=== PATIENT | male | born 1935 | race American Indian/Alaskan Native ===

== ENCOUNTER 2016-06-10 10:49 | Emergency (ER) | payer MEDICARE, OTHER ==
--- NOTE | 2016-06-10 11:01 | EDM.PDOC ---
[id number]: painful urination with urinary frequency/urgency Time Seen by Provider: 06/10/16 11:00 Source of Information: Reports: Patient, Family, Old Records, RN, RN Notes Reviewed History Limitations: Reports: No Limitations - History of Present Illness INITIAL COMMENTS - FREE TEXT/NARRATIVE: Pt c/o several days of burning with urination and urgency. Pt admits to chills. Denies fever. Reports suprapubic fullness and nausea. Onset: Gradual Duration: Constant, Getting Worse Location: Reports: Abdomen, Pelvis Quality: Reports: Ache, Burning, Pressure Severity: Severe Improves with: Reports: None Worsens with: Reports: None Context: Denies: Activity, Exercise, Lifting, Sick Contact, Trauma Associated Symptoms: Reports: No Other Symptoms Pelvic Pain Score (Numeric/FACES): 2 - Related Data Allergies Allergy/AdvReac Type Severity Reaction Status Date / Time No Known Allergies Allergy Verified 02/17/16 17:56 Home Meds: Home Meds Aspirin [Esvin Chewable] 81 mg PO DAILY 06/16/13 [History] Clopidogrel [Plavix] 75 mg PO DAILY 06/16/13 [History] Lisinopril [Zestril] 2.5 mg PO DAILY 06/16/13 [History] Insulin Aspart [NovoLOG] 15 units SQ QID 02/17/16 [History] Insulin Detemir [Levemir] 32 units SQ BEDTIME 02/17/16 [History] Insulin Detemir [Levemir] 46 units SQ DAILY 02/17/16 [History] metFORMIN HCl [Metformin HCl] 500 mg PO BID 02/17/16 [History] Levofloxacin 0 mg PO BID 06/10/16 [History] Past Medical History Cardiovascular History: Reports: Bypass, Hypertension, [place], Stents Other Cardiovascular History: 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 Social & Family History - Family History Family Medical History: Noncontributory - Tobacco Use Smoking Status *Q: Former Smoker Years of Tobacco use: 10 Packs/Tins Daily: 0.5 Used Tobacco, but Quit: Yes Month Tobacco Last Used: 1998 Second Hand Smoke Exposure: No - Caffeine Use Caffeine Use: Reports: Coffee Caffeine Use Comment: 1 cup daily - Alcohol Use Days Per Week of Alcohol Use: 0 (None) - Recreational Drug Use Recreational Drug Use: No Drug Use in Last 12 Months: No Recreational Drug Last Use: Never - Living Situation & Occupation Living situation: Reports: , with Family Occupation: Retired ED ROS GENERAL - Review of Systems Review Of Systems: ROS reveals no pertinent complaints other than HPI. ED EXAM, RENAL/ - Physical Exam Exam: See Below Exam Limited By: No Limitations General Appearance: Alert, WD/WN, No Apparent Distress Head: Atraumatic, Normocephalic Neck: Normal Inspection Respiratory/Chest: No Respiratory Distress, Lungs Clear, Normal Breath Sounds, No Accessory Muscle Use, Chest Non-Tender Cardiovascular: Regular Rate, Rhythm GI/Abdominal: Normal Bowel Sounds, Soft, No Abnormal Bruit, Pelvis Stable, Tender (suprapubic with bladder distention to level of umbilicus). No: Guarding , Rigid, Rebound (Male) Exam: Deferred Rectal (Males) Exam: Deferred Back Exam: Normal Inspection, Full Range of Motion. No: CVA Tenderness (L), CVA Tenderness (R) Neurological: Alert, Oriented, No Motor/Sensory Deficits Psychiatric: Normal Affect, Normal Mood Skin Exam: Warm, Dry, Intact, Normal Color, No Rash Course - Vital Signs Last Recorded V/S: Last Vital Signs Temp 36.2 C 06/10/16 11:13 Pulse 61 06/10/16 11:13 Resp 18 06/10/16 11:13 BP 120/69 06/10/16 11:13 Pulse Ox 95 06/10/16 11:13 - Orders/Labs/Meds Labs: Laboratory Tests 06/10/16 06/10/16 06/10/16 Range/Units 11:35 11:35 11:35 WBC 7.8 (5.0-10.0) 10^3/uL RBC 4.74 (4.6-6.2) 10^6/uL Hgb 12.7 L (14.0-18.0) g/dL Hct 39.0 L (40.0-54.0) % MCV 82.3 (80-100) fL MCH 26.8 L (27.0-34.0) pg MCHC 32.6 L (33.0-35.0) g/dL Plt Count 237 (150-450) 10^3/uL Neut % (Auto) 67.3 (42.2-75.2) % Lymph % (Auto) 17.9 L (20.5-50.1) % Ford % (Auto) 9.9 H (2-8) % Eos % (Auto) 4.6 H (1.0-3.0) % Baso % (Auto) 0.3 (0.0-1.0) % Sodium 134 L (135-145) mmol/L Potassium 4.3 (3.6-5.0) mmol/L Chloride 102 (101-111) mmol/L Carbon Dioxide 24.0 (21.0-31.0) mmol/L Anion Gap 12.3 BUN 34 H (7-18) mg/dL Creatinine 1.3 (0.6-1.3) mg/dL Est Cr Clr Drug Dosing 49.07 mL/min Estimated GFR (MDRD) 53 BUN/Creatinine Ratio 26.15 Glucose 66 L (74-105) mg/dL Lactic Acid 1.2 (0.5-2.2) mmol/L Calcium 8.9 (8.4-10.2) mg/dl Total Bilirubin 0.4 (0.2-1.0) mg/dL AST 23 (10-42) IU/L ALT 14 (10-60) IU/L Alkaline Phosphatase 78 (42-121) IU/L Total Protein 7.5 (6.7-8.2) g/dl Albumin 3.6 (3.2-5.5) g/dl Globulin 3.9 Albumin/Globulin Ratio 0.92 Urine Color (YELLOW) Urine Appearance (CLEAR) Urine pH (5.0-9.0) Ur Specific [place] (1.005-1.030) Urine Protein (NEGATIVE) Urine Glucose (UA) (NEGATIVE) Urine Ketones (NEGATIVE) Urine Occult Blood (NEGATIVE) Urine Nitrite (NEGATIVE) Urine Bilirubin (NEGATIVE) Urine Urobilinogen (0.2-1.0) mg/dL Ur Leukocyte Esterase (NEGATIVE) Urine RBC /HPF Urine WBC (0-5/HPF) /HPF Ur Epithelial Cells /HPF Urine Bacteria (0-FEW/HPF) /HPF 05/05/17 Range/Units 12:27 WBC (5.0-10.0) 10^3/uL RBC (4.6-6.2) 10^6/uL Hgb (14.0-18.0) g/dL Hct (40.0-54.0) % MCV (80-100) fL MCH (27.0-34.0) pg MCHC (33.0-35.0) g/dL Plt Count (150-450) 10^3/uL Neut % (Auto) (42.2-75.2) % Lymph % (Auto) (20.5-50.1) % Ford % (Auto) (2-8) % Eos % (Auto) (1.0-3.0) % Baso % (Auto) (0.0-1.0) % Sodium (135-145) mmol/L Potassium (3.6-5.0) mmol/L Chloride (101-111) mmol/L Carbon Dioxide (21.0-31.0) mmol/L Anion Gap BUN (7-18) mg/dL Creatinine (0.6-1.3) mg/dL Est Cr Clr Drug Dosing mL/min Estimated GFR (MDRD) BUN/Creatinine Ratio Glucose (74-105) mg/dL Lactic Acid (0.5-2.2) mmol/L Calcium (8.4-10.2) mg/dl Total Bilirubin (0.2-1.0) mg/dL AST (10-42) IU/L ALT (10-60) IU/L Alkaline Phosphatase (42-121) IU/L Total Protein (6.7-8.2) g/dl Albumin (3.2-5.5) g/dl Globulin Albumin/Globulin Ratio Urine Color Yellow (YELLOW) Urine Appearance Clear (CLEAR) Urine pH 7.0 (5.0-9.0) Ur Specific [place] 1.015 (1.005-1.030) Urine Protein Negative (NEGATIVE) Urine Glucose (UA) Negative (NEGATIVE) Urine Ketones Negative (NEGATIVE) Urine Occult Blood Negative (NEGATIVE) Urine Nitrite Negative (NEGATIVE) Urine Bilirubin Negative (NEGATIVE) Urine Urobilinogen 0.2 (0.2-1.0) mg/dL Ur Leukocyte Esterase Small H (NEGATIVE) Urine RBC 0-5 /HPF Urine WBC 40-50 H (0-5/HPF) /HPF Ur Epithelial Cells Few /HPF Urine Bacteria Few (0-FEW/HPF) /HPF Meds: Medications Discontinued Medications Generic Name Dose Route Start Last Admin Trade Name Jarad PRN Reason Stop Dose Admin Sodium Chloride 1,000 mls @ 999 mls/hr 06/10/16 11:48 06/10/16 11:51 Normal Saline IV 06/10/16 12:48 999 mls/hr .BOLUS ONE Administration Ceftriaxone Sodium 1 gm/ 50 mls @ 100 mls/hr 06/10/16 13:19 06/10/16 13:25 Sodium Chloride IV 06/10/16 13:48 100 mls/hr ONETIME ONE Administration Phenazopyridine HCl 190 mg 06/10/16 13:21 06/10/16 13:35 Urinary Pain Relief PO 06/10/16 13:22 190 mg ONETIME ONE Administration Sodium Chloride 10 ml 06/10/16 11:29 06/10/16 11:47 Saline Flush FLUSH 10 ml ASDIRECTED PRN Administration Keep Vein Open Tamsulosin HCl 0.4 mg 06/10/16 13:21 06/10/16 13:35 Flomax PO 06/10/16 13:22 0.4 mg ONETIME ONE Administration Departure - Departure Time of Disposition: 14:08 Disposition: Home, Self-Care 01 Condition: fair Clinical Impression: Retention of urine, UTI, Urinary tract infectious disease - Discharge Information Instructions: Lemus Catheter Care, Adult, Urinary Tract Infection, Adult, Easy- to-Read, Acute Urinary Retention, Male, [id number] Referrals: Brien Carrion MD [Primary Care Provider] - Forms: ED Department Discharge Additional Instructions: Rx: Pyridium 200mg *Turn urine orange* Rx: Flomax 0.4mg Rx: Bactrim DS Follow up with your urologist as scheduled. Return to ER if worse at any time. ED HPI RENAL/ - General Chief Complaint: Genitourinary Problem Stated Complaint: UTI Time Seen by Provider: 06/10/16 11:00 Source of Information: Reports: Patient, Old Records, RN, RN Notes Reviewed History Limitations: Reports: No Limitations - Related Data Allergies/ADRs: Allergies Allergy/AdvReac Type Severity Reaction Status Date / Time No Known Allergies Allergy Verified 02/17/16 17:56 Home Meds: Home Meds Aspirin [Esvin Chewable] 81 mg PO DAILY 06/16/13 [History] Clopidogrel [Plavix] 75 mg PO DAILY 06/16/13 [History] Lisinopril [Zestril] 2.5 mg PO DAILY 06/16/13 [History] Insulin Aspart [NovoLOG] 15 units SQ QID 02/17/16 [History] Insulin Detemir [Levemir] 32 units SQ BEDTIME 02/17/16 [History] Insulin Detemir [Levemir] 46 units SQ DAILY 02/17/16 [History] metFORMIN HCl [Metformin HCl] 500 mg PO BID 02/17/16 [History] Levofloxacin 0 mg PO BID 06/10/16 [History] Departure - Departure Time of Disposition: 14:08 Disposition: Home, Self-Care 01 Condition: fair Clinical Impression: Retention of urine, UTI, Urinary tract infectious disease Instructions: Lemus Catheter Care, Adult, Urinary Tract Infection, Adult, Easy- to-Read, Acute Urinary Retention, Male, [id number] Referrals: Brien Carrion MD [Primary Care Provider] - Forms: ED Department Discharge Additional Instructions: Rx: Pyridium 200mg *Turn urine orange* Rx: Flomax 0.4mg Rx: Bactrim DS Follow up with your urologist as scheduled. Return to ER if worse at any time.
[2016-06-10 11:16] VITALS: BP 120/69
[2016-06-10] MEDS ORDERED: Sodium Chloride 0.9% 10 ML Syringe FLUSH PRN (11:29)
[2016-06-10] MEDS ORDERED: Sodium Chloride 0.9% 1,000 ML IV ONE (11:48)
[2016-06-10] MEDS ORDERED: cefTRIAXone 1 GM in Sodium Chloride 0.9% 50 ML IV ONE (13:19)
[2016-06-10] MEDS ORDERED: Phenazopyridine 95 MG Tab PO ONE (13:21)
[2016-06-10] MEDS ORDERED: Tamsulosin 0.4 MG Cap.ER PO ONE (13:21)
== END 2016-06-10 14:44 | disposition home or self-care (01) ==
LOC: DL.ED 10:49
DX: N39.0 Urinary tract infection, site not specified (principal); E11.9 Type 2 diabetes mellitus without complications; I25.2 Old myocardial infarction; I10 Essential (primary) hypertension; Z95.4 Presence of other heart-valve replacement; Z79.4 Long term (current) use of insulin; Z79.82 Long term (current) use of aspirin; Z79.84 Long term (current) use of oral hypoglycemic drugs; Z87.891 Personal history of nicotine dependence; Z95.1 Presence of aortocoronary bypass graft
CPT/HCPCS: 36415; 51701; 80053; 81001; 83605; 85025; 87040; 87086; 96361; 96365; 99283; A9270; J0696; J7030; J7050; 99284

== ENCOUNTER 2017-02-10 19:25 | Emergency (ER) | payer MEDICARE, OTHER ==
[2017-02-10 19:38] VITALS: BP 105/47
--- NOTE | 2017-02-10 20:53 | EDM.PDOC ---
ED HPI GENERAL MEDICAL PROBLEM - General Chief Complaint: Flank Pain Stated Complaint: BACK PAINS, [id number] Time Seen by Provider: 02/10/17 19:35 Source of Information: Reports: Patient, Family History Limitations: Reports: No Limitations - History of Present Illness INITIAL COMMENTS - FREE TEXT/NARRATIVE: Presents with initial complaint of right flank pain for past 2 weeks, daughter notes concern of UTI which he had in past. Patient reports unable to see primary provider today as he was out of town. States am blood sugars are low, family report this has been on going over past year. Last insulin change approximately one year ago. Patient also reports hands have been hurting. Patient stated that he was told by [facility] that if he couldn't wait to be seen until next week he should just go to ED. Right Lower Back Pain Score (Numeric/FACES): 6 - Related Data Allergies Allergy/AdvReac Type Severity Reaction Status Date / Time No Known Allergies Allergy Verified 02/10/17 19:37 Home Meds: Home Meds Aspirin [Esvin Chewable] 81 mg PO DAILY 06/16/13 [History] Clopidogrel [Plavix] 75 mg PO DAILY 06/16/13 [History] Lisinopril [Zestril] 2.5 mg PO DAILY 06/16/13 [History] Insulin Aspart [NovoLOG] 15 units SQ QID 02/17/16 [History] Insulin Detemir [Levemir] 32 units SQ BEDTIME 02/17/16 [History] Insulin Detemir [Levemir] 46 units SQ DAILY 02/17/16 [History] metFORMIN HCl [Metformin HCl] 500 mg PO BID 02/17/16 [History] Levofloxacin 0 mg PO BID 06/10/16 [History] Past Medical History HEENT History: Reports: Impaired Vision Cardiovascular History: Reports: Bypass, Hypertension, [place], Stents Other Cardiovascular History: 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 Gastrointestinal History: Reports: Chronic Constipation Genitourinary History: Reports: Prostate Disorder, UTI, Recurrent Musculoskeletal History: Reports: Amputation, Arthritis Neurological History: Reports: None Psychiatric History: Reports: None Endocrine/Metabolic History: Reports: Diabetes, Type II Hematologic History: Reports: None Immunologic History: Reports: None Oncologic (Cancer) History: Reports: Prostate Dermatologic History: Reports: None - Infectious Disease History Infectious Disease History: Reports: Measles - Past Surgical History Musculoskeletal Surgical History: Reports: Amputation Other Musculoskeletal Surgeries/Procedures:: spinal surgery? Social & Family History - Family History Family Medical History: Noncontributory - Tobacco Use Smoking Status *Q: Never Smoker Years of Tobacco use: 10 Packs/Tins Daily: 0.5 Used Tobacco, but Quit: Yes Month Tobacco Last Used: 1998 Second Hand Smoke Exposure: No - Caffeine Use Caffeine Use: Reports: Coffee Caffeine Use Comment: 1 cup daily - Alcohol Use Days Per Week of Alcohol Use: 0 (None) - Recreational Drug Use Recreational Drug Use: No Drug Use in Last 12 Months: No Recreational Drug Last Use: Never - Living Situation & Occupation Living situation: Reports: , with Family Occupation: Retired ED ROS GENERAL - Review of Systems Review Of Systems: See Below Constitutional: Reports: No Symptoms HEENT: Reports: No Symptoms Respiratory: Reports: No Symptoms Cardiovascular: Reports: No Symptoms Endocrine: Reports: Low Glucose (am with lows 40-60 and highs of 200, notes nightly snack) GI/Abdominal: Reports: No Symptoms : Reports: Flank Pain (right), Frequency. Denies: Incontinence, Pain, Urgency Musculoskeletal: Reports: Other (hands) Skin: Reports: No Symptoms Neurological: Reports: No Symptoms ED EXAM,LOWER BACK PAIN/INJURY - Physical Exam Exam: See Below Exam Limited By: No Limitations General Appearance: Alert, No Apparent Distress Eye Exam: Bilateral Eye: EOMI Ears: Normal External Exam, Hearing Grossly Normal Nose: Normal Inspection Throat/Mouth: Normal Inspection, Normal Lips, Normal Voice Head: Atraumatic Neck: Normal Inspection Respiratory/Chest: No Respiratory Distress, Lungs Clear, Normal Breath Sounds Cardiovascular: Normal Peripheral Pulses, Regular Rate, Rhythm, No Edema GI/Abdominal: Normal Bowel Sounds, Soft Back Exam: CVA Tenderness (R). No: Vertebral Tenderness Extremities: Normal Range of Motion, Other (BKA left) Neurological: Alert, Normal Mood/Affect, Oriented x 3 Psychiatric: Normal Affect, Normal Mood Skin Exam: Warm, Dry, Intact, Normal Color, No Rash. No: Erythema, Increased Warmth Course - Vital Signs Last Recorded V/S: Last Vital Signs Temp 97 F 02/10/17 19:31 Pulse 80 02/10/17 19:31 Resp 18 02/10/17 19:31 BP 105/47 L 02/10/17 19:31 Pulse Ox 95 01/05/18 19:31 - Orders/Labs/Meds Labs: Laboratory Tests 02/10/17 Range/Units 19:45 Urine Color Yellow (YELLOW) Urine Appearance Clear (CLEAR) Urine pH 5.0 (5.0-9.0) Ur Specific [place] 1.025 (1.005-1.030) Urine Protein Negative (NEGATIVE) Urine Glucose (UA) Negative (NEGATIVE) Urine Ketones Trace H (NEGATIVE) Urine Occult Blood Negative (NEGATIVE) Urine Nitrite Negative (NEGATIVE) Urine Bilirubin Negative (NEGATIVE) Urine Urobilinogen 0.2 (0.2-1.0) mg/dL Ur Leukocyte Esterase Negative (NEGATIVE) Urine RBC 0-5 /HPF Urine WBC 0-5 (0-5/HPF) /HPF Ur Epithelial Cells Few /HPF Urine Bacteria Few (0-FEW/HPF) /HPF - Re-Assessments/Exams Free Text/Narrative Re-Assessment/Exam: UA results reviewed with patient and family. Patient instructed to follow up with primary provider. June trial decreasing Levimir by 2 units, continue to monitor blood sugar. Departure - Departure Time of Disposition: 21:00 Disposition: Home, Self-Care 01 Condition: Good Clinical Impression: Right flank discomfort, Multiple episodes of hypoglycemia - Discharge Information Instructions: Hypoglycemia Referrals: Brien aCrrion MD [Primary Care Provider] - Forms: ED Department Discharge Additional Instructions: decrease bedtime levimir to 30 units eat bed time snack follow up with with primary care next week urgent follow up if febrile, pain, increased difficulty with urination,l continue to monitor blood sugars and report to primary care provider
== END 2017-02-10 21:03 | disposition home or self-care (01) ==
LOC: DL.ED 19:25
DX: E11.649 Type 2 diabetes mellitus with hypoglycemia without coma (principal); R10.9 Unspecified abdominal pain; I10 Essential (primary) hypertension; Z79.84 Long term (current) use of oral hypoglycemic drugs; Z79.899 Other long term (current) drug therapy; Z87.440 Personal history of urinary (tract) infections
CPT/HCPCS: 81001; 99284

== ENCOUNTER 2017-04-09 12:02 | Emergency (ER) | payer MEDICARE, OTHER ==
[2017-04-09 12:10] VITALS: BP 101/64
[2017-04-09] MEDS ORDERED: Bacitracin Oint 1 GM U/D Packet TOP ONE (12:39)
--- NOTE | 2017-04-09 13:00 | EDM.PDOC ---
Scribed by Keshia Dewitt 04/09/17 1300 for Todd Obando MD ED HPI GENERAL MEDICAL PROBLEM - General Chief Complaint: Lower Extremity Injury/Pain Stated Complaint: [id number] BLISTER ON LEG RIGHT SIDE INFECTION Time Seen by Provider: 04/09/17 12:08 Source of Information: Reports: Patient, RN, RN Notes Reviewed History Limitations: Reports: No Limitations - History of Present Illness INITIAL COMMENTS - FREE TEXT/NARRATIVE: Patient presents to ER from home by POV with complaint of breakdown of skin on his right BKA stump. He first noticed it this past week on . On Monday he called [facility] and asked if he could come and have it looked at but they told him no he could not be seen. Yesterday he noticed a small amount of yellow drainage. Today he noticed increased redness around the area. Onset Date: 04/06/17 Duration: Getting Worse Location: Reports: Lower Extremity, Right Quality: Reports: Ache Severity: Moderate Improves with: Reports: None Worsens with: Reports: None Associated Symptoms: Reports: No Other Symptoms Right Knee Pain Score (Numeric/FACES): 9 - Related Data Allergies Allergy/AdvReac Type Severity Reaction Status Date / Time No Known Allergies Allergy Verified 04/09/17 12:10 Home Meds: Home Meds Aspirin [Esvin Chewable] 81 mg PO DAILY 06/16/13 [History] Clopidogrel [Plavix] 75 mg PO DAILY 06/16/13 [History] Lisinopril [Zestril] 2.5 mg PO DAILY 06/16/13 [History] Insulin Aspart [NovoLOG] 15 units SQ QID 02/17/16 [History] Insulin Detemir [Levemir] 20 units SQ BEDTIME 02/17/16 [History] Insulin Detemir [Levemir] 46 units SQ DAILY 02/17/16 [History] metFORMIN HCl [Metformin HCl] 500 mg PO DAILY 02/17/16 [History] atorvaSTATin [Lipitor] 40 mg PO BEDTIME 04/09/17 [History] Past Medical History HEENT History: Reports: Impaired Vision Cardiovascular History: Reports: Bypass, Hypertension, [place], Stents Other Cardiovascular History: 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 Gastrointestinal History: Reports: Chronic Constipation Genitourinary History: Reports: Prostate Disorder, UTI, Recurrent Musculoskeletal History: Reports: Amputation, Arthritis Neurological History: Reports: None Psychiatric History: Reports: None Endocrine/Metabolic History: Reports: Diabetes, Type II Hematologic History: Reports: None Immunologic History: Reports: None Oncologic (Cancer) History: Reports: Prostate Dermatologic History: Reports: None - Infectious Disease History Infectious Disease History: Reports: Measles - Past Surgical History Musculoskeletal Surgical History: Reports: Amputation Other Musculoskeletal Surgeries/Procedures:: spinal surgery? Social & Family History - Family History Family Medical History: Noncontributory - Tobacco Use Smoking Status *Q: Never Smoker Years of Tobacco use: 10 Packs/Tins Daily: 0.5 Used Tobacco, but Quit: Yes Month Tobacco Last Used: 1998 Second Hand Smoke Exposure: No - Caffeine Use Caffeine Use: Reports: Coffee Caffeine Use Comment: 1 cup daily - Alcohol Use Days Per Week of Alcohol Use: 0 (None) - Recreational Drug Use Recreational Drug Use: No Drug Use in Last 12 Months: No Recreational Drug Last Use: Never - Living Situation & Occupation Living situation: Reports: , with Family Occupation: Retired Review of Systems - Review of Systems Review Of Systems: ROS reveals no pertinent complaints other than HPI. ED EXAM, GENERAL - Physical Exam Exam: See Below Exam Limited By: No Limitations General Appearance: Alert, WD/WN, No Apparent Distress Head: Atraumatic, Normocephalic Respiratory/Chest: No Respiratory Distress Extremities: Other (Rt BKA stump with 2.5cm gissel. area of thin whitish skin consistent with a recently ruptured bulla with a 1cm linear disruption/tear with fully approximated. The 2.5cm area of skin breakdown surrounded by 3.5cm x 6cm of mild but tender erythema.) Neurological: Alert, Oriented, No Motor/Sensory Deficits Course - Vital Signs Last Recorded V/S: Last Vital Signs Temp 36.6 C 04/09/17 12:05 Pulse 88 04/09/17 12:05 Resp 18 04/09/17 12:05 BP 101/64 04/09/17 12:05 Pulse Ox 98 04/09/17 12:05 - Orders/Labs/Meds Meds: Medications Discontinued Medications Generic Name Dose Route Start Last Admin Trade Name Freq PRN Reason Stop Dose Admin Bacitracin 1 dose 04/09/17 12:39 Bacitracin Oint 1 Gm TOP 04/09/17 12:40 ONETIME ONE Departure - Departure Time of Disposition: 12:43 Disposition: Home, Self-Care 01 Condition: Fair Clinical Impression: 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 RX: Cipro 500mg. Follow up in clinic this week for a recheck. Rest the right lower extremity stump and minimize the pressure to the area as much as possible. I have read and agree with the documentation that has been completed regarding this visit. By signing this record, I attest that the documentation was completed in my physical presence and is an accurate record of the encounter.
== END 2017-04-09 13:03 | disposition home or self-care (01) ==
LOC: DL.ED 12:02
DX: L89.899 Pressure ulcer of other site, unspecified stage (principal); I10 Essential (primary) hypertension; E11.9 Type 2 diabetes mellitus without complications; Z87.891 Personal history of nicotine dependence; Z95.1 Presence of aortocoronary bypass graft; Z79.82 Long term (current) use of aspirin; Z79.4 Long term (current) use of insulin; Z79.02 Long term (current) use of antithrombotics/antiplatelets; Z79.899 Other long term (current) drug therapy; Z89.511 Acquired absence of right leg below knee
CPT/HCPCS: 99283

== ENCOUNTER 2018-12-13 07:48 | Observation (INO) | payer MEDICARE, OTHER ==
--- NOTE | 2018-12-13 07:40 | EDM.PDOC ---
"ED HPI GENERAL MEDICAL PROBLEM - General Chief Complaint: Neuro Symptoms/Deficits Stated Complaint: STROKE Time Seen by Provider: 12/13/18 07:49 Source of Information: Reports: Patient, EMS, Old Records, RN, RN Notes Reviewed History Limitations: Reports: No Limitations - History of Present Illness INITIAL COMMENTS - FREE TEXT/NARRATIVE: EMS pre-arrival alert of Stroke Code at 0731HRS. Pt arrives to ER from home by ambulance with report of left arm numbness and weakness present since pt woke up this morning. EMS reports finding the pt awake , A&Ox3 with a blood glucose of 132. Last known well time: 1500HRS yesterday 12/12/18. Arrival to ER: 0748HRS. Blood Glucose on arrival to ER: 72 GCS on arrival to ER: [address] scanner on EMS gurney. Pt states he did not feel well in general yesterday, and specifically he reports that he went to bed at 1500HRS due to a severe headache at the left side of the head. He states he does not think he woke up at all until about 0600HRS this morning, he isn't sure but he does not recall waking up at all during this prolonged sleep period. When he woke this morning he states that he felt as if his left arm was gone, and he had to pull the blankets back to find it. His left hand felt numb and weak. He also reports some numbness and tingling in the right arm as well, but it is now back to normal. He continues to feel as if his left arm is not part of his own body. He denies visual changes , difficulty with speech or swallowing, slurred speech, or loss of bowel or bladder control. Pt has Hx of DM Type 2 insulin dependent, CAD, and has B/L BKAs. Onset: Unknown/Unsure Duration: Constant Location: Reports: Upper Extremity, Left Severity: Moderate Improves with: Reports: None Worsens with: Reports: None Associated Symptoms: Reports: No Other Symptoms Headache Pain Score (Numeric/FACES): 5 - Related Data Allergies Allergy/AdvReac Type Severity Reaction Status Date / Time No Known Allergies Allergy Verified 12/13/18 08:12 Home Meds: Home Meds Aspirin [Esvin Chewable] 81 mg PO DAILY 06/16/13 [History] Clopidogrel [Plavix] 75 mg PO DAILY 06/16/13 [History] Lisinopril [Zestril] 2.5 mg PO DAILY 06/16/13 [History] Insulin Aspart [NovoLOG] 15 units SQ QID 02/17/16 [History] Insulin Detemir [Levemir] 20 units SQ BEDTIME 02/17/16 [History] Insulin Detemir [Levemir] 46 units SQ DAILY 02/17/16 [History] metFORMIN HCl [Metformin HCl] 500 mg PO BID 02/17/16 [History] atorvaSTATin [Lipitor] 40 mg PO BEDTIME 04/09/17 [History] Baclofen 5 mg PO BID 12/13/18 [History] Celecoxib 200 mg PO DAILY PRN 12/13/18 [History] Docusate Sodium [Stool Softener] 100 mg PO BID 12/13/18 [History] Magnesium Oxide 400 mg PO DAILY 12/13/18 [History] Tamsulosin [Tamsulosin 24 Hr] 0.4 mg PO DAILY 12/13/18 [History] Past Medical History HEENT History: Reports: Impaired Vision (wears glasses) Cardiovascular History: Reports: Bypass, High Cholesterol, Hypertension, CA, Stents Other Cardiovascular History: 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 Gastrointestinal History: Reports: Chronic Constipation Genitourinary History: Reports: Prostate Disorder, UTI, Recurrent Musculoskeletal History: Reports: Amputation, Arthritis Neurological History: Reports: None Psychiatric History: Reports: None Endocrine/Metabolic History: Reports: Diabetes, Type II, IDDM Hematologic History: Reports: None Immunologic History: Reports: None Oncologic (Cancer) History: Reports: Prostate Dermatologic History: Reports: None - Infectious Disease History Infectious Disease History: Reports: Measles - Past Surgical History Cardiovascular Surgical History: Reports: Coronary Artery Bypass Musculoskeletal Surgical History: Reports: Amputation Other Musculoskeletal Surgeries/Procedures:: spinal surgery? Social & Family History - Family History Family Medical History: Noncontributory - Tobacco Use Smoking Status *Q: Former Smoker Tobacco Use Within Last Twelve Months: Cigarettes Packs/Tins Daily: 0.5 Used Tobacco, but Quit: Yes - Caffeine Use Caffeine Use: Reports: Coffee, Soda Caffeine Use Comment: 1 cup daily - Alcohol Use Alcohol Use History: No - Recreational Drug Use Recreational Drug Use: No - Living Situation & Occupation Living situation: Reports: , with Family Occupation: Retired ED ROS GENERAL - Review of Systems Review Of Systems: ROS reveals no pertinent complaints other than HPI. ED EXAM, NEURO - Physical Exam Exam: See Below Exam Limited By: No Limitations General Appearance: Alert, WD/WN, No Apparent Distress Eye Exam: Bilateral Eye: EOMI, Normal Inspection, PERRL Ears: Normal External Exam, Hearing Grossly Normal Nose: Normal Inspection, Normal Mucosa, No Blood Throat/Mouth: Normal Inspection, Normal Lips, Normal Oropharynx, Normal Voice, No Airway Compromise Head Exam: Atraumatic, Normocephalic Neck: Normal Inspection, Supple, Non-Tender, Full Range of Motion Respiratory/Chest: No Respiratory Distress, Lungs Clear, Normal Breath Sounds, No Accessory Muscle Use, Chest Non-Tender Cardiovascular: Regular Rate, Rhythm, No JVD, Extra Beats GI/Abdominal: Normal Bowel Sounds, Soft, Non-Tender, No Organomegaly, No Distention, No Abnormal Bruit, No Mass Neurological: Alert, Normal Mood/Affect, CN II-XII Intact, Oriented x 3, Abnormal Motor (Mild left upper extremity weakness), Other (NIH: 0) Back Exam: Normal Inspection Extremities: Normal Range of Motion (B/L upper extremities), Other (B/L BKA's) Psychiatric: Normal Affect, Normal Mood Skin Exam: Warm, Dry, Normal Color EKG INTERPRETATION EKG Date: 12/13/18 Time: 08:14 Rhythm: Other (SR with PVCs) Rate (Beats/Min): 74 [place]: LAD-Left [place] Deviation P-Wave: Present QRS: RBBB (Inferior Q waves) ST-T: Normal QT: Normal Comparison: No Change EKG Interpretation Comments: Repeat EKG at 0905HRS: unchanged, no acute ischemic changes. Course - Vital Signs Last Recorded V/S: Last Vital Signs Temp 97.5 F 12/13/18 08:04 Pulse 74 12/13/18 08:04 Resp 16 12/13/18 08:04 BP 117/55 L 12/13/18 08:04 Pulse Ox 98 12/13/18 08:04 - Orders/Labs/Meds Orders: Active Orders 24 hr Category Date Time Status Blood Glucose Check, Bedside [] ONETIME Care 12/13/18 07:40 Active Blood Glucose Check, Bedside [] ONETIME Care 12/13/18 08:22 Active Blood Glucose Check, Bedside [] ONETIME Care 12/13/18 08:43 Active EKG 12 Lead [EKG Documentation Completion] [] STAT Care 12/13/18 07:49 Active EKG 12 Lead [EKG Documentation Completion] [] STAT Care 12/13/18 08:57 Active Peripheral IV Care [] . DIRECTED Care 12/13/18 07:49 Active DRUG SCREEN URINE BIORAD [URCHEM] Stat Lab 12/13/18 08:57 Ordered UA RFX IVELISSE AND CULT IF INDIC [URIN] Stat Lab 12/13/18 08:57 Ordered Sodium Chloride 0.9% [Saline Flush] Med 12/13/18 07:48 Active 10 ml FLUSH ASDIRECTED PRN Peripheral IV Insertion Adult [OM.PC] Stat Oth 12/13/18 07:49 Ordered Medication Orders Sodium Chloride (Saline Flush) 10 ml FLUSH ASDIRECTED PRN PRN Reason: Keep Vein Open Last Admin: 12/13/18 08:25 Dose: 10 ml Labs: Laboratory Tests 12/13/18 12/13/18 12/13/18 Range/Units 07:51 08:08 08:08 WBC 8.9 (5.0-10.0) 10^3/uL RBC 5.11 (4.6-6.2) 10^6/uL Hgb 13.9 L D (14.0-18.0) g/dL Hct 42.0 (40.0-54.0) % MCV 82.2 (80-100) fL MCH 27.2 (27.0-34.0) pg MCHC 33.1 (33.0-35.0) g/dL Plt Count 217 (150-450) 10^3/uL Neut % (Auto) 56.8 (42.2-75.2) % Lymph % (Auto) 30.8 (20.5-50.1) % [place] % (Auto) 7.5 (2-8) % Eos % (Auto) 4.5 H (1.0-3.0) % Baso % (Auto) 0.4 (0.0-1.0) % PT 9.3 (9.0-12.0) SEC INR 0.9 (0.9-1.2) APTT 24.2 (22.0-34.0) SEC Sodium (135-145) mmol/L Potassium (3.6-5.0) mmol/L Chloride (101-111) mmol/L Carbon Dioxide (21.0-31.0) mmol/L Anion Gap BUN (7-18) mg/dL Creatinine (0.6-1.3) mg/dL Est Cr Clr Drug Dosing mL/min Estimated GFR (MDRD) BUN/Creatinine Ratio Glucose (74-105) mg/dL POC Glucose 72 L (83-110) mg/dl Calcium (8.4-10.2) mg/dl Total Bilirubin (0.2-1.0) mg/dL AST (10-42) IU/L ALT (10-60) IU/L Alkaline Phosphatase (42-121) IU/L Troponin I (0.00-0.02) ng/ml Total Protein (6.7-8.2) g/dl Albumin (3.2-5.5) g/dl Globulin Albumin/Globulin Ratio Ethyl Alcohol mg/dL 12/13/18 12/13/18 12/13/18 Range/Units 08:08 08:19 08:42 WBC (5.0-10.0) 10^3/uL RBC (4.6-6.2) 10^6/uL Hgb (14.0-18.0) g/dL Hct (40.0-54.0) % MCV (80-100) fL MCH (27.0-34.0) pg MCHC (33.0-35.0) g/dL Plt Count (150-450) 10^3/uL Neut % (Auto) (42.2-75.2) % Lymph % (Auto) (20.5-50.1) % [place] % (Auto) (2-8) % Eos % (Auto) (1.0-3.0) % Baso % (Auto) (0.0-1.0) % PT (9.0-12.0) SEC INR (0.9-1.2) APTT (22.0-34.0) SEC Sodium 140 (135-145) mmol/L Potassium 4.5 (3.6-5.0) mmol/L Chloride 109 (101-111) mmol/L Carbon Dioxide 23.0 (21.0-31.0) mmol/L Anion Gap 12.5 BUN 24 H (7-18) mg/dL Creatinine 1.0 (0.6-1.3) mg/dL Est Cr Clr Drug Dosing 60.66 mL/min Estimated GFR (MDRD) > 60 BUN/Creatinine Ratio 24.00 Glucose 70 L (74-105) mg/dL POC Glucose 53 L 181 H (83-110) mg/dl Calcium 8.8 (8.4-10.2) mg/dl Total Bilirubin 0.6 (0.2-1.0) mg/dL AST 18 (10-42) IU/L ALT 13 (10-60) IU/L Alkaline Phosphatase 93 (42-121) IU/L Troponin I < 0.02 (0.00-0.02) ng/ml Total Protein 7.0 (6.7-8.2) g/dl Albumin 3.6 (3.2-5.5) g/dl Globulin 3.4 Albumin/Globulin Ratio 1.06 Ethyl Alcohol < 5 mg/dL Meds: Medications Generic Name Dose Route Start Last Admin Trade Name Freq PRN Reason Stop Dose Admin Sodium Chloride 10 ml 12/13/18 07:48 12/13/18 08:25 Saline Flush FLUSH 10 ml ASDIRECTED PRN Administration Keep Vein Open Discontinued Medications Generic Name Dose Route Start Last Admin Trade Name Freq PRN Reason Stop Dose Admin Dextrose/Water 50 ml 12/13/18 08:20 12/13/18 08:25 Dextrose 50% In Water IVPUSH 12/13/18 08:21 50 ml ONETIME ONE Administration - Radiology Interpretation Free Text/Narrative:: [facility] Final Radiology Report Call: [phone] assistance Online chat: [email or web address] Name: BRITTANI MALONEY Age: 83Years M Date: 12/13/2018 SSN: -- : [id number] Study: CT HEAD WO Requesting Physician: SENIA ELISE Images: [id number] Addl Studies: Provided Clinical History: acute left sided weakness, numbness, slurring of speech Contrast: Without Contrast Medium: Contrast Amount: Contrast Method: Page 1 of 2 PROCEDURE INFORMATION: Exam: CT Head Without Contrast Exam date and time: 12/13/2018 7:46 AM Clinical history: 83 years old, male; Speech disturbance and weakness, extremity and weakness, facial; Left; Slurred speech; Additional info: Acute left sided weakness, numbness, slurring of speech TECHNIQUE: Imaging protocol: Computed tomography of the head without contrast. Radiation optimization: All CT scans at this facility use at least one of these dose optimization techniques: automated exposure control; mA and/or kV adjustment per patient size (includes targeted exams where dose is matched to clinical indication); or iterative reconstruction. Other technique: STROKE PROTOCOL was implemented. COMPARISON: CT HEAD 10/01/2008 11:11 AM FINDINGS: Brain: Multiple scattered periventricular and subcortical white matter hypodensities are redemonstrated. New low-attenuation focus is present in the right posterior parietal lobe white matter without associated gyral edema or sulcal effacement. Small old lacunar infarct left cerebellar hemisphere. No acute intracranial hemorrhage. No evidence of intra or extra- axial masses or mass effect. Ventricles: Normal. No ventriculomegaly. Bones/joints: Unremarkable. No acute fracture. Sinuses: Visualized sinuses are unremarkable. No fluid levels. Mastoid air cells: Visualized mastoid air cells are well aerated. Orbits: Bilateral lens replacements. Soft tissues: 0.6 cm homogeneous low attenuation circumscribed subcutaneous nodule is present in the left frontal scalp similar to prior exam and probably represents a benign epidermal inclusion/sebaceous cyst. Vasculature: The vertebral and cavernous carotid arteries are calcified. BRITTANI MALONEY | Final Radiology Report CONFIDENTIALITY STATEMENT This report is intended only for use by the referring physician, and only in accordance with law. If you received this in error, call [phone]. Page 2 of 2 IMPRESSION: 1. No acute findings. Please note that CT is known to be relatively insensitive to acute ischemia in the first 24-48 hours and MRI may be useful if clinically indicated. [place] Stroke Program Early CT Score (ASPECTS) = 10 2. Moderate burden of chronic ischemic microvascular change including remote left cerebellar lacunar infarct. One region of white matter hypoattenuation is new since 2008 but appears nonacute. Thank you for allowing us to participate in the care of your patient. Dictated and Authenticated by: Antoinette Silver MD 12/13/2018 8:14 AM Central Time ([place] & [place]) - Re-Assessments/Exams Free Text/Narrative Re-Assessment/Exam: 12/13/18 08:21 Blood Glucose at 0820HRS had dropped to 53. Dextrose 50% 1 amp. IVP given. Free Text/Narrative Re-Assessment/Exam: 12/13/18 09:04 US for carotids/ECHO, and CTA Head/Neck are locally available services today for further stroke evaluation, therefore pt will be admitted to Dr. Botello as pt' s initially stroke evaluation is negative, and pt has displayed diabetic hypoglycemia while in the ER. Departure - Departure Time of Disposition: 09:07 (admit to Dr. Botello) Disposition: Admitted As Inpatient 67 Condition: Fair, Undetermined Clinical Impression: Left arm weakness, Hypoglycemia associated with type 2 diabetes mellitus - Discharge Information *PRESCRIPTION DRUG MONITORING PROGRAM REVIEWED*: No *COPY OF PRESCRIPTION DRUG MONITORING REPORT IN PATIENT REJI: No Forms: ED Department Discharge - My Orders Last 24 Hours: My Active Orders 12/13/18 07:40 Blood Glucose Check, Bedside [RC] ONETIME 12/13/18 07:48 Sodium Chloride 0.9% [Saline Flush] 10 ml FLUSH ASDIRECTED PRN 12/13/18 07:49 EKG 12 Lead [EKG Documentation Completion] [RC] STAT Peripheral IV Care [RC] . DIRECTED Peripheral IV Insertion Adult [OM.PC] Stat 12/13/18 08:22 Blood Glucose Check, Bedside [RC] ONETIME 12/13/18 08:43 Blood Glucose Check, Bedside [RC] ONETIME 12/13/18 08:57 EKG 12 Lead [EKG Documentation Completion] [RC] STAT DRUG SCREEN URINE BIORAD [URCHEM] Stat UA RFX IVELISSE AND CULT IF INDIC [URIN] Stat - Assessment/Plan Last 24 Hours: My Active Orders 12/13/18 07:40 Blood Glucose Check, Bedside [RC] ONETIME 12/13/18 07:48 Sodium Chloride 0.9% [Saline Flush] 10 ml FLUSH ASDIRECTED PRN 12/13/18 07:49 EKG 12 Lead [EKG Documentation Completion] [RC] STAT Peripheral IV Care [RC] . DIRECTED Peripheral IV Insertion Adult [OM.PC] Stat 12/13/18 08:22 Blood Glucose Check, Bedside [RC] ONETIME 12/13/18 08:43 Blood Glucose Check, Bedside [RC] ONETIME 12/13/18 08:57 EKG 12 Lead [EKG Documentation Completion] [RC] STAT DRUG SCREEN URINE BIORAD [URCHEM] Stat UA RFX IVELISSE AND CULT IF INDIC [URIN] Stat"
[~2018-12-13 07:48] MED LIST: Sodium Chloride 0.9% 10 ML Syringe FLUSH PRN
[2018-12-13] MEDS ORDERED: 50% Dextrose in Water 50 ML Syringe IVPUSH ONE (08:20)
[2018-12-13 08:36] LABS: ANION GAP 12.5; CHLORIDE,CL 109 mmol/L (101-111); SODIUM,NA 140 mmol/L (135-145)
--- NOTE | 2018-12-13 11:22 | PCM.HP ---
H&P History of Present Illness - General Date of Service: 12/13/18 Admit Problem/Dx: Admission Diagnosis/Problem Admission Diagnosis/Problem Neurological deficit present Source of Information: Patient - History of Present Illness Initial Comments - Free Text/Narative: 83-year-old gentleman with a history of coronary artery disease, diabetes Status post bilateral below-knee amputation. The patient developed left sided headache suddenly around 1 PM on 12/12 No associated neurological changes. The patient went to take a nap, which is his usual activity in the early afternoon. Later family noticed that the he continued to sleep the rest of the day and the night as well. When woke up in the morning he was complaining that he has no feeling in the left arm. Left arm meat carver weakness noted by family. Had no associated slurred speech. Blood pressure at home was in the 80s. Blood sugar was around 110 The patient was brought into the emergency room. Blood pressure improved with fluids to the 100s. Blood sugar was noted to be low in the 70s The patient is reporting on and off headache. 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 He continues to have left arm meat carver weakness. No chest pain, no palpitation, no shortness of breath. No speech deficit. No problems with swallowing. Headache Pain Score (Numeric/FACES): 5 - Related Data Allergies/Adverse Reactions: Allergies Allergy/AdvReac Type Severity Reaction Status Date / Time No Known Allergies Allergy Verified 12/13/18 10:02 Home Medications: Home Meds Aspirin [Esvin Chewable] 81 mg PO DAILY 06/16/13 [History] Clopidogrel [Plavix] 75 mg PO DAILY 06/16/13 [History] Lisinopril [Zestril] 2.5 mg PO DAILY 06/16/13 [History] Insulin Aspart [NovoLOG] 2 - 10 units SQ TIDMEALS 02/17/16 [History] Insulin Detemir [Levemir] 40 units SQ WITHBREAKFAST 02/17/16 [History] metFORMIN HCl [Metformin HCl] 500 mg PO BIDMEALS 02/17/16 [History] atorvaSTATin [Lipitor] 40 mg PO BEDTIME 04/09/17 [History] Baclofen 5 mg PO BID PRN 12/13/18 [History] Celecoxib 200 mg PO DAILY 12/13/18 [History] Docusate Sodium [Stool Softener] 200 mg PO BEDTIME 12/13/18 [History] Magnesium Oxide 400 mg PO DAILY 12/13/18 [History] Tamsulosin [Tamsulosin 24 Hr] 0.4 mg PO DAILY 12/13/18 [History] Past Medical History HEENT History: Reports: Hard of Hearing, Impaired Vision, Other (See Below) Other HEENT History: blind left eye Cardiovascular History: Reports: Bypass, High Cholesterol, Hypertension, LA, Stents Other Cardiovascular History: 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 Respiratory History: Reports: None Gastrointestinal History: Reports: Chronic Constipation Genitourinary History: Reports: Prostate Disorder, UTI, Recurrent Musculoskeletal History: Reports: Amputation, Arthritis, Other (See Below) Other Musculoskeletal History: bilateral below the knee amputation Neurological History: Reports: Concussion Psychiatric History: Reports: None Endocrine/Metabolic History: Reports: Diabetes, Type II, IDDM Hematologic History: Reports: None Immunologic History: Reports: None Oncologic (Cancer) History: Reports: Prostate Dermatologic History: Reports: None - Infectious Disease History Infectious Disease History: Reports: Measles - Past Surgical History HEENT Surgical History: Reports: None Cardiovascular Surgical History: Reports: Coronary Artery Bypass GI Surgical History: Reports: None Male Surgical History: Reports: Prostatectomy, TURP-Transurethral Resection of Prostate, Other (See Below) Other Male Surgeries/Procedures: Partial Prostectomy Endocrine Surgical History: Reports: None Neurological Surgical History: Reports: Discectomy Musculoskeletal Surgical History: Reports: Amputation Other Musculoskeletal Surgeries/Procedures:: spinal surgery for slipped disc Social & Family History - Family History Family Medical History: Noncontributory - Tobacco Use Smoking Status *Q: Former Smoker Packs/Tins Daily: 0.5 Used Tobacco, but Quit: Yes Month/Year Tobacco Last Used: 1998 Second Hand Smoke Exposure: No - Caffeine Use Caffeine Use: Reports: Coffee, Soda Caffeine Use Comment: 1 cup daily - Recreational Drug Use Recreational Drug Use: No - Living Situation & Occupation Living situation: Reports: , with Family Occupation: Retired H&P Review of Systems - Review of Systems: Review Of Systems: See Below General: Denies: Fever, Chills Pulmonary: Denies: Shortness of Breath Cardiovascular: Denies: Chest Pain Gastrointestinal: Denies: Abdominal Pain Genitourinary: Denies: Dysuria Psychiatric: Denies: Confusion Neurological: Reports: Headache, Numbness (Left upper extremity), Tingling ( Left upper extremity). Denies: Dizziness, Seizure, Trouble Speaking, Change in Speech Exam - Exam Exam: See Below - Vital Signs Vital Signs: Last Vital Signs Temp 36.5 C 12/13/18 10:02 Pulse 72 12/13/18 10:02 Resp 18 12/13/18 10:02 BP 111/54 L 12/13/18 10:02 Pulse Ox 95 12/13/18 10:02 Weight: 80.83 kg - Exam General: Alert, Oriented Neck: Supple Lungs: Clear to Auscultation, Normal Respiratory Effort Cardiovascular: Regular Rate, Regular Rhythm GI/Abdominal Exam: Normal Bowel Sounds, Soft, Non-Tender Extremities: Other (Bilateral below knee amputation) Skin: Warm, Dry Neurological: Cranial Nerves Intact, Normal Speech, Sensation Intact (Reports numbness in left upper extremity), Focal Deficit (Mild weakness in left upper extremity meat carver strength) Neuro Extensive - Motor, Sensory, Reflexes: No: Dysarthria, Receptive Aphasia, Expressive Aphasia - Patient Data Lab Results Last 24 hrs: Laboratory Results - last 24 hr 12/13/18 12/13/18 12/13/18 Range/Units 07:51 08:08 08:08 WBC 8.9 (5.0-10.0) 10^3/uL RBC 5.11 (4.6-6.2) 10^6/uL Hgb 13.9 L D (14.0-18.0) g/dL Hct 42.0 (40.0-54.0) % MCV 82.2 (80-100) fL MCH 27.2 (27.0-34.0) pg MCHC 33.1 (33.0-35.0) g/dL Plt Count 217 (150-450) 10^3/uL Neut % (Auto) 56.8 (42.2-75.2) % Lymph % (Auto) 30.8 (20.5-50.1) % [place] % (Auto) 7.5 (2-8) % Eos % (Auto) 4.5 H (1.0-3.0) % Baso % (Auto) 0.4 (0.0-1.0) % PT 9.3 (9.0-12.0) SEC INR 0.9 (0.9-1.2) APTT 24.2 (22.0-34.0) SEC Sodium (135-145) mmol/L Potassium (3.6-5.0) mmol/L Chloride (101-111) mmol/L Carbon Dioxide (21.0-31.0) mmol/L Anion Gap BUN (7-18) mg/dL Creatinine (0.6-1.3) mg/dL Est Cr Clr Drug Dosing mL/min Estimated GFR (MDRD) BUN/Creatinine Ratio Glucose (74-105) mg/dL POC Glucose 72 L (83-110) mg/dl Calcium (8.4-10.2) mg/dl Total Bilirubin (0.2-1.0) mg/dL AST (10-42) IU/L ALT (10-60) IU/L Alkaline Phosphatase (42-121) IU/L Troponin I (0.00-0.02) ng/ml Total Protein (6.7-8.2) g/dl Albumin (3.2-5.5) g/dl Globulin Albumin/Globulin Ratio Urine Color (YELLOW) Urine Appearance (CLEAR) Urine pH (5.0-9.0) Ur Specific [place] (1.005-1.030) Urine Protein (NEGATIVE) Urine Glucose (UA) (NEGATIVE) Urine Ketones (NEGATIVE) Urine Occult Blood (NEGATIVE) Urine Nitrite (NEGATIVE) Urine Bilirubin (NEGATIVE) Urine Urobilinogen (0.2-1.0) mg/dL Ur Leukocyte Esterase (NEGATIVE) Urine RBC /HPF Urine WBC (0-5/HPF) /HPF Ur Epithelial Cells (NOT SEEN) /HPF Urine Bacteria (0-FEW/HPF) /HPF Urine Mucus (NOT SEEN) /LPF Urine Opiates Screen (NEGATIVE) Ur Oxycodone Screen (NEGATIVE) Urine Methadone Screen (NEGATIVE) Ur Barbiturates Screen (NEGATIVE) U Tricyclic Antidepress (NEGATIVE) Ur Phencyclidine Scrn (NEGATIVE) Ur Amphetamine Screen (NEGATIVE) U Methamphetamines Scrn (NEGATIVE) Urine MDMA Screen (NEGATIVE) U Benzodiazepines Scrn (NEGATIVE) Urine Cocaine Screen (NEGATIVE) U Marijuana (THC) Screen (NEGATIVE) Ethyl Alcohol mg/dL 12/13/18 12/13/18 12/13/18 Range/Units 08:08 08:19 08:42 WBC (5.0-10.0) 10^3/uL RBC (4.6-6.2) 10^6/uL Hgb (14.0-18.0) g/dL Hct (40.0-54.0) % MCV (80-100) fL MCH (27.0-34.0) pg MCHC (33.0-35.0) g/dL Plt Count (150-450) 10^3/uL Neut % (Auto) (42.2-75.2) % Lymph % (Auto) (20.5-50.1) % [place] % (Auto) (2-8) % Eos % (Auto) (1.0-3.0) % Baso % (Auto) (0.0-1.0) % PT (9.0-12.0) SEC INR (0.9-1.2) APTT (22.0-34.0) SEC Sodium 140 (135-145) mmol/L Potassium 4.5 (3.6-5.0) mmol/L Chloride 109 (101-111) mmol/L Carbon Dioxide 23.0 (21.0-31.0) mmol/L Anion Gap 12.5 BUN 24 H (7-18) mg/dL Creatinine 1.0 (0.6-1.3) mg/dL Est Cr Clr Drug Dosing 60.66 mL/min Estimated GFR (MDRD) > 60 BUN/Creatinine Ratio 24.00 Glucose 70 L (74-105) mg/dL POC Glucose 53 L 181 H (83-110) mg/dl Calcium 8.8 (8.4-10.2) mg/dl Total Bilirubin 0.6 (0.2-1.0) mg/dL AST 18 (10-42) IU/L ALT 13 (10-60) IU/L Alkaline Phosphatase 93 (42-121) IU/L Troponin I < 0.02 (0.00-0.02) ng/ml Total Protein 7.0 (6.7-8.2) g/dl Albumin 3.6 (3.2-5.5) g/dl Globulin 3.4 Albumin/Globulin Ratio 1.06 Urine Color (YELLOW) Urine Appearance (CLEAR) Urine pH (5.0-9.0) Ur Specific [place] (1.005-1.030) Urine Protein (NEGATIVE) Urine Glucose (UA) (NEGATIVE) Urine Ketones (NEGATIVE) Urine Occult Blood (NEGATIVE) Urine Nitrite (NEGATIVE) Urine Bilirubin (NEGATIVE) Urine Urobilinogen (0.2-1.0) mg/dL Ur Leukocyte Esterase (NEGATIVE) Urine RBC /HPF Urine WBC (0-5/HPF) /HPF Ur Epithelial Cells (NOT SEEN) /HPF Urine Bacteria (0-FEW/HPF) /HPF Urine Mucus (NOT SEEN) /LPF Urine Opiates Screen (NEGATIVE) Ur Oxycodone Screen (NEGATIVE) Urine Methadone Screen (NEGATIVE) Ur Barbiturates Screen (NEGATIVE) U Tricyclic Antidepress (NEGATIVE) Ur Phencyclidine Scrn (NEGATIVE) Ur Amphetamine Screen (NEGATIVE) U Methamphetamines Scrn (NEGATIVE) Urine MDMA Screen (NEGATIVE) U Benzodiazepines Scrn (NEGATIVE) Urine Cocaine Screen (NEGATIVE) U Marijuana (THC) Screen (NEGATIVE) Ethyl Alcohol < 5 mg/dL 12/13/18 12/13/18 Range/Units 08:57 08:57 WBC (5.0-10.0) 10^3/uL RBC (4.6-6.2) 10^6/uL Hgb (14.0-18.0) g/dL Hct (40.0-54.0) % MCV (80-100) fL MCH (27.0-34.0) pg MCHC (33.0-35.0) g/dL Plt Count (150-450) 10^3/uL Neut % (Auto) (42.2-75.2) % Lymph % (Auto) (20.5-50.1) % [place] % (Auto) (2-8) % Eos % (Auto) (1.0-3.0) % Baso % (Auto) (0.0-1.0) % PT (9.0-12.0) SEC INR (0.9-1.2) APTT (22.0-34.0) SEC Sodium (135-145) mmol/L Potassium (3.6-5.0) mmol/L Chloride (101-111) mmol/L Carbon Dioxide (21.0-31.0) mmol/L Anion Gap BUN (7-18) mg/dL Creatinine (0.6-1.3) mg/dL Est Cr Clr Drug Dosing mL/min Estimated GFR (MDRD) BUN/Creatinine Ratio Glucose (74-105) mg/dL POC Glucose (83-110) mg/dl Calcium (8.4-10.2) mg/dl Total Bilirubin (0.2-1.0) mg/dL AST (10-42) IU/L ALT (10-60) IU/L Alkaline Phosphatase (42-121) IU/L Troponin I (0.00-0.02) ng/ml Total Protein (6.7-8.2) g/dl Albumin (3.2-5.5) g/dl Globulin Albumin/Globulin Ratio Urine Color Yellow (YELLOW) Urine Appearance Clear (CLEAR) Urine pH 5.5 (5.0-9.0) Ur Specific [place] 1.025 (1.005-1.030) Urine Protein Trace H (NEGATIVE) Urine Glucose (UA) 100 H (NEGATIVE) Urine Ketones Trace H (NEGATIVE) Urine Occult Blood Moderate H (NEGATIVE) Urine Nitrite Negative (NEGATIVE) Urine Bilirubin Negative (NEGATIVE) Urine Urobilinogen 0.2 (0.2-1.0) mg/dL Ur Leukocyte Esterase Small H (NEGATIVE) Urine RBC 0-5 /HPF Urine WBC 10-20 H (0-5/HPF) /HPF Ur Epithelial Cells Few (NOT SEEN) /HPF Urine Bacteria Rare (0-FEW/HPF) /HPF Urine Mucus Rare (NOT SEEN) /LPF Urine Opiates Screen Negative (NEGATIVE) Ur Oxycodone Screen Negative (NEGATIVE) Urine Methadone Screen Negative (NEGATIVE) Ur Barbiturates Screen Negative (NEGATIVE) U Tricyclic Antidepress Negative (NEGATIVE) Ur Phencyclidine Scrn Negative (NEGATIVE) Ur Amphetamine Screen Negative (NEGATIVE) U Methamphetamines Scrn Negative (NEGATIVE) Urine MDMA Screen Negative (NEGATIVE) U Benzodiazepines Scrn Negative (NEGATIVE) Urine Cocaine Screen Negative (NEGATIVE) U Marijuana (THC) Screen Negative (NEGATIVE) Ethyl Alcohol mg/dL Result Diagrams: 12/13/18 08:08 12/13/18 08:08 - Problem List (1) Hypoglycemia associated with type 2 diabetes mellitus SNOMED Code(s): 124523336, 085904266 ICD Code: E11.649 - TYPE 2 DIABETES MELLITUS WITH HYPOGLYCEMIA WITHOUT COMA Status: Acute Current Visit: No (2) Left arm weakness SNOMED Code(s): 927854298 ICD Code: R29.898 - OTH SYMPTOMS AND SIGNS INVOLVING THE MUSCULOSKELETAL SYSTEM Status: Acute Current Visit: No Problem List Initiated/Reviewed/Updated: Yes Orders Last 24hrs: Active Orders 24 hr Category Date Time Status Admission Diagnosis [ADT] Urgent ADT 12/13/18 09:05 Ordered Admission Status [Patient Status] [ADT] Routine ADT 12/13/18 09:05 Active Blood Glucose Check, Bedside [RC] ONETIME Care 12/13/18 07:40 Active Blood Glucose Check, Bedside [RC] ONETIME Care 12/13/18 08:22 Active Blood Glucose Check, Bedside [RC] ONETIME Care 12/13/18 08:43 Active EKG 12 Lead [EKG Documentation Completion] [RC] STAT Care 12/13/18 07:49 Active EKG 12 Lead [EKG Documentation Completion] [RC] STAT Care 12/13/18 08:57 Active Glucose [Blood Glucose Check, Bedside] [RC] QIDACANDBED Care 12/13/18 10:45 Ordered Neuro Check [RC] Q2HR Care 12/13/18 10:53 Ordered Peripheral IV Care [RC] . DIRECTED Care 12/13/18 07:49 Active Telemetry Monitoring [Cardiac Monitoring] [RC] . Care 12/13/18 10:54 Ordered DIRECTED OT Evaluation and Treatment [CONS] Routine Cons 12/13/18 10:52 Active OT Evaluation and Treatment [CONS] Routine Cons 12/13/18 11:17 Ordered PT Evaluation and Treatment [CONS] Routine Cons 12/13/18 10:52 Ordered RADIO ELECT[employer] OFFICER Eval and Treat [RAD[employer] ELECTRON[employer] OFFICER Evaluation and Treatment] [CONS Cons 12/13/18 10:53 Ordered ] Routine Ang Head [CT] Routine Exams 12/13/18 10:55 Ordered Brain wo Cont [MR] Routine Exams 12/13/18 10:56 Ordered CTA Neck W & W/O Contrast [Ang Neck] [CT] Routine Exams 12/13/18 10:55 Ordered Echo Comp wo Cont [US] Routine Exams 12/13/18 10:54 Ordered BASIC METABOLIC PANEL,BMP [CHEM] AM Lab 12/14/18 05:15 Ordered CBC WITH AUTO DIFF [HEME] AM Lab 12/14/18 05:15 Ordered CULTURE URINE [RM] Stat Lab 12/13/18 08:57 Received Aspirin Med 12/13/18 11:00 Ordered 325 mg PO WITHBREAKFAST Celecoxib [Celecoxib] Med 12/14/18 09:00 Ordered 200 mg PO DAILY Clopidogrel [Plavix] Med 12/14/18 09:00 Ordered 75 mg PO DAILY Dextrose 5%-Normal Saline with KCl 20 mEq @ 75 mL/Hr ( Med 12/13/18 10:45 Ordered 1000 mL) Dextrose 5%-0.9% NaCl with KCl [D5 NS with 20 mEq KCl] 1,000 ml IV ASDIRECTED Docusate Sodium [Stool Softener] Med 12/13/18 21:00 Ordered 200 mg PO BEDTIME Insulin Detemir [Levemir] Med 12/14/18 08:00 Ordered 40 units SQ WITHBREAKFAST Insulin Lispro [HumaLOG] Med 12/13/18 11:00 Ordered See Protocol SUBCUT ACBED Magnesium Oxide [Magnesium Oxide] Med 12/14/18 09:00 Ordered 400 mg PO DAILY Sodium Chloride 0.9% [Saline Flush] Med 12/13/18 07:48 Active 10 ml FLUSH ASDIRECTED PRN Tamsulosin [Flomax] Med 12/14/18 09:00 Ordered 0.4 mg PO DAILY atorvaSTATin [Lipitor] Med 12/13/18 21:00 Ordered 40 mg PO BEDTIME Peripheral IV Insertion Adult [OM.PC] Stat Oth 12/13/18 07:49 Ordered Medication Orders Aspirin (Aspirin) 325 mg PO WITHBREAKFAST [facility] Atorvastatin Calcium (Lipitor) 40 mg PO BEDTIME [facility] Celecoxib (Celebrex) 200 mg PO DAILY [facility] Clopidogrel Bisulfate (Plavix) 75 mg PO DAILY [facility] Docusate Sodium (Colace) 200 mg PO BEDTIME [facility] Potassium Chloride/Dextrose/Sod Cl (D5 Ns With 20 Meq Kcl) 1,000 mls @ 75 mls/ hr IV ASDIRECTED [facility] Insulin Glargine (Lantus) 40 unit SUBCUT WITHBREAKFAST [facility] Insulin Human Lispro (Humalog) 0 unit SUBCUT ACBED [facility]; Protocol Magnesium Oxide (Magnesium Oxide) 500 mg PO DAILY [facility] Sodium Chloride (Saline Flush) 10 ml FLUSH ASDIRECTED PRN PRN Reason: Keep Vein Open Last Admin: 12/13/18 08:25 Dose: 10 ml Tamsulosin HCl (Flomax) 0.4 mg PO DAILY [facility] Assessment/Plan Comment:: Presented with left-sided headache, woke up with left hand meat carver weakness, left arm numbness Not a TPA candidate due to relatively mild deficit and last well-known more than 12 hours ago. 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
[2018-12-13] MEDS ORDERED: Zolpidem 5 MG Tab PO PRN (11:25)
[2018-12-13] MEDS ORDERED: Ondansetron 4 MG Tab.DIS PO PRN (11:25)
[2018-12-13] MEDS ORDERED: Iopamidol 755 Mg/ML 100 ML Bottle IVPUSH ONE (12:35)
[2018-12-13] MEDS: Heparin Sodium 5,000 Units/ML Vial SUBCUT SCH ×2 (14:30→22:07)
[2018-12-13] MEDS: Dextrose 5%-0.9% NaCl with KCl 1,000 ML IV SCH (14:30)
[2018-12-13] MEDS: Aspirin 325 MG Tab PO SCH (14:30)
[2018-12-13] MEDS: Insulin Lispro 100 Units/ML 3 ML Vial SUBCUT SCH ×3 (14:40→21:12)
[2018-12-13] MEDS: Acetaminophen 325 MG Tab PO PRN (20:30)
[2018-12-13] MEDS ORDERED: atorvaSTATin 20 MG Tab PO SCH (21:00)
[2018-12-13] MEDS ORDERED: Docusate Sodium 100 MG Cap PO SCH (21:00)
[2018-12-14] MEDS: Dextrose 5%-0.9% NaCl with KCl 1,000 ML IV SCH (04:10)
[2018-12-14] MEDS: Heparin Sodium 5,000 Units/ML Vial SUBCUT SCH (05:19)
[2018-12-14 07:01] LABS: ANION GAP 10.8; CHLORIDE,CL 110 mmol/L (101-111); SODIUM,NA 138 mmol/L (135-145)
[2018-12-14] MEDS ORDERED: Insulin Glarg,Human.Rec.Analog 100 UNIT/ML ML SUBCUT SCH (08:00)
[2018-12-14] MEDS: Acetaminophen 325 MG Tab PO PRN (08:25)
[2018-12-14] MEDS: Aspirin 325 MG Tab PO SCH (08:25)
[2018-12-14] MEDS: Insulin Lispro 100 Units/ML 3 ML Vial SUBCUT SCH ×2 (08:26→11:53)
[2018-12-14] MEDS ORDERED: Clopidogrel 75 MG Tab PO SCH (09:00)
[2018-12-14] MEDS ORDERED: Celecoxib 100 MG Cap PO SCH (09:00)
[2018-12-14] MEDS ORDERED: Tamsulosin 0.4 MG Cap.ER PO SCH (09:00)
[2018-12-14] MEDS ORDERED: Sodium Chloride 0.9% 10 ML Syringe FLUSH PRN (10:47)
[2018-12-14] MEDS ORDERED: Ciprofloxacin 500 MG Tab PO SCH (11:00)
--- NOTE | 2018-12-14 11:08 | PCM.DCSUM1 ---
Discharge Summary - Hospital Course Free Text/Narrative:: 83-year-old with a history of coronary artery disease, peripheral artery disease. The patient presented with the headache, left upper extremity numbness. 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 telemetry showed no arrythmia He will continue on aspirin, Plavix, Lipitor consider f/up with PMD He has diabetes and important to control blood sugars He was noted to have urinary frequency which might relate to urinary tract infection o prostate hypertrophy Urine analysis showed >100k gramneg rods and gram pos cocci start on cipro Diagnosis: Stroke: No - Discharge Data Discharge Date: 12/14/18 Discharge Disposition: Home, Self-Care 01 Condition: Good - Referral to Home Health Primary Care Physician: Brien Carrion MD - Discharge Diagnosis/Problem(s) (1) Hypoglycemia associated with type 2 diabetes mellitus SNOMED Code(s): 966597372, 654993737 ICD Code: E11.649 - TYPE 2 DIABETES MELLITUS WITH HYPOGLYCEMIA WITHOUT COMA Status: Acute Current Visit: No (2) Left arm weakness SNOMED Code(s): 575419901 ICD Code: R29.898 - OTH SYMPTOMS AND SIGNS INVOLVING THE MUSCULOSKELETAL SYSTEM Status: Acute Current Visit: No - Patient Summary/Data Consults: Consultations 12/13/18 10:52 OT Evaluation and Treatment [CONS] Routine PT Evaluation and Treatment [CONS] Routine 12/13/18 10:53 REPORT MANAGER Eval and Treat [REPORT MANAGER Evaluation and Treatment] [CONS] Routine 12/13/18 11:17 OT Evaluation and Treatment [CONS] Routine - Patient Instructions Diet: Heart Healthy Diet - Discharge Plan *PRESCRIPTION DRUG MONITORING PROGRAM REVIEWED*: No *COPY OF PRESCRIPTION DRUG MONITORING REPORT IN PATIENT REJI: No Prescriptions/Med Rec: Ciprofloxacin [Ciprofloxacin HCl] 250 mg PO BID #10 tablet Home Medications: Home Meds Aspirin [Esvin Chewable Aspirin] 81 mg PO DAILY 06/16/13 [History] Clopidogrel [Plavix] 75 mg PO DAILY 06/16/13 [History] Lisinopril [Zestril] 2.5 mg PO DAILY 06/16/13 [History] Insulin Aspart [NovoLOG] 2 - 10 units SQ TIDMEALS 02/17/16 [History] Insulin Detemir [Levemir] 40 units SQ WITHBREAKFAST 02/17/16 [History] metFORMIN HCl [Metformin HCl] 500 mg PO BIDMEALS 02/17/16 [History] atorvaSTATin [Lipitor] 40 mg PO BEDTIME 04/09/17 [History] Baclofen 5 mg PO BID PRN 12/13/18 [History] Celecoxib 200 mg PO DAILY 12/13/18 [History] Docusate Sodium [Stool Softener] 200 mg PO BEDTIME 12/13/18 [History] Magnesium Oxide 400 mg PO DAILY 12/13/18 [History] Tamsulosin [Flomax] 0.4 mg PO DAILY 12/13/18 [History] Ciprofloxacin [Ciprofloxacin HCl] 250 mg PO BID #10 tablet 12/14/18 [Rx] Oxygen Therapy Mode: Room Air Patient Handouts: Weakness, [id number], Ciprofloxacin tablets Referrals: PCP,Unobtain [Ordering Only Provider] - - Discharge Summary/Plan Comment DC Time >30 min.: No - General Info Date of Service: 12/14/18 - Review of Systems General: Denies: Fever Pulmonary: Denies: Shortness of Breath Cardiovascular: Denies: Chest Pain Gastrointestinal: Denies: Abdominal Pain Genitourinary: Reports: Urgency. Denies: Dysuria Neurological: Reports: Other (had headache, arm pain, numbness) - Patient Data Vitals - Most Recent: Last Vital Signs Temp 36.2 C 12/14/18 07:44 Pulse 66 12/14/18 07:44 Resp 18 12/14/18 07:44 BP 134/72 12/14/18 07:44 Pulse Ox 96 12/14/18 07:44 Weight - Most Recent: 80.83 kg I&O - Last 24 hours: Intake & Output 12/13/18 12/14/18 12/14/18 22:59 06:59 14:59 Intake Total 240 1224 620 Output Total 555 Balance 240 714 620 Lab Results - Last 24 hrs: Laboratory Results - last 24 hr 12/13/18 12/13/18 12/13/18 Range/Units 11:27 14:14 17:04 WBC (5.0-10.0) 10^3/uL RBC (4.6-6.2) 10^6/uL Hgb (14.0-18.0) g/dL Hct (40.0-54.0) % MCV (80-100) fL MCH (27.0-34.0) pg MCHC (33.0-35.0) g/dL Plt Count (150-450) 10^3/uL Neut % (Auto) (42.2-75.2) % Lymph % (Auto) (20.5-50.1) % [place] % (Auto) (2-8) % Eos % (Auto) (1.0-3.0) % Baso % (Auto) (0.0-1.0) % Sodium (135-145) mmol/L Potassium (3.6-5.0) mmol/L Chloride (101-111) mmol/L Carbon Dioxide (21.0-31.0) mmol/L Anion Gap BUN (7-18) mg/dL Creatinine (0.6-1.3) mg/dL Est Cr Clr Drug Dosing mL/min Estimated GFR (MDRD) Glucose (74-105) mg/dL POC Glucose 53 L 137 H 178 H (83-110) mg/dl Calcium (8.4-10.2) mg/dl 12/13/18 12/14/18 12/14/18 Range/Units 20:57 06:05 06:05 WBC 6.9 (5.0-10.0) 10^3/uL RBC 4.71 (4.6-6.2) 10^6/uL Hgb 12.6 L (14.0-18.0) g/dL Hct 38.7 L (40.0-54.0) % MCV 82.2 (80-100) fL MCH 26.8 L (27.0-34.0) pg MCHC 32.6 L (33.0-35.0) g/dL Plt Count 205 (150-450) 10^3/uL Neut % (Auto) 55.0 (42.2-75.2) % Lymph % (Auto) 33.3 (20.5-50.1) % [place] % (Auto) 7.6 (2-8) % Eos % (Auto) 3.5 H (1.0-3.0) % Baso % (Auto) 0.6 (0.0-1.0) % Sodium 138 (135-145) mmol/L Potassium 4.8 (3.6-5.0) mmol/L Chloride 110 (101-111) mmol/L Carbon Dioxide 22.0 (21.0-31.0) mmol/L Anion Gap 10.8 BUN 22 H (7-18) mg/dL Creatinine 0.9 (0.6-1.3) mg/dL Est Cr Clr Drug Dosing 67.40 mL/min Estimated GFR (MDRD) > 60 Glucose 249 H (74-105) mg/dL POC Glucose 267 H (83-110) mg/dl Calcium 8.4 (8.4-10.2) mg/dl 12/14/18 Range/Units 07:30 WBC (5.0-10.0) 10^3/uL RBC (4.6-6.2) 10^6/uL Hgb (14.0-18.0) g/dL Hct (40.0-54.0) % MCV (80-100) fL MCH (27.0-34.0) pg MCHC (33.0-35.0) g/dL Plt Count (150-450) 10^3/uL Neut % (Auto) (42.2-75.2) % Lymph % (Auto) (20.5-50.1) % [place] % (Auto) (2-8) % Eos % (Auto) (1.0-3.0) % Baso % (Auto) (0.0-1.0) % Sodium (135-145) mmol/L Potassium (3.6-5.0) mmol/L Chloride (101-111) mmol/L Carbon Dioxide (21.0-31.0) mmol/L Anion Gap BUN (7-18) mg/dL Creatinine (0.6-1.3) mg/dL Est Cr Clr Drug Dosing mL/min Estimated GFR (MDRD) Glucose (74-105) mg/dL POC Glucose 213 H (83-110) mg/dl Calcium (8.4-10.2) mg/dl IVELISSE Results - Last 24 hrs: Microbiology 12/13/18 08:57 Urine Culture - Preliminary Urine, Voided Med Orders - Current: Current Medications Acetaminophen (Tylenol) 650 mg PO Q4H PRN PRN Reason: Pain (Mild 1-3)/fever Last Admin: 12/14/18 08:25 Dose: 650 mg Aspirin (Aspirin) 325 mg PO WITHBREAKFAST [facility] Last Admin: 12/14/18 08:25 Dose: 325 mg Atorvastatin Calcium (Lipitor) 40 mg PO BEDTIME [facility] Last Admin: 12/13/18 20:27 Dose: 40 mg Celecoxib (Celebrex) 200 mg PO DAILY [facility] Last Admin: 12/14/18 08:25 Dose: 200 mg Ciprofloxacin (Ciprofloxacin Hcl) 250 mg PO BID [facility] Clopidogrel Bisulfate (Plavix) 75 mg PO DAILY [facility] Last Admin: 12/14/18 08:25 Dose: 75 mg Docusate Sodium (Colace) 200 mg PO BEDTIME [facility] Last Admin: 12/13/18 20:27 Dose: 200 mg Heparin Sodium (Porcine) (Heparin Sodium) 5,000 units SUBCUT Q8HR [facility] Last Admin: 12/14/18 05:19 Dose: 5,000 units Potassium Chloride/Dextrose/Sod Cl (D5 Ns With 20 Meq Kcl) 1,000 mls @ 75 mls/ hr IV ASDIRECTED [facility] Last Admin: 12/14/18 04:10 Dose: 75 mls/hr Insulin Glargine (Lantus) 40 unit SUBCUT WITHBREAKFAST [facility] Last Admin: 12/14/18 08:28 Dose: 40 units Insulin Human Lispro (Humalog) 0 unit SUBCUT ACBED [facility]; Protocol Last Admin: 12/14/18 08:26 Dose: 2 units Magnesium Oxide (Magnesium Oxide) 500 mg PO DAILY [facility] Last Admin: 12/14/18 08:24 Dose: 500 mg Ondansetron HCl (Zofran Odt) 4 mg PO Q4H PRN PRN Reason: nausea, able to take PO Sodium Chloride (Saline Flush) 10 ml FLUSH ASDIRECTED PRN PRN Reason: Keep Vein Open Tamsulosin HCl (Flomax) 0.4 mg PO DAILY [facility] Last Admin: 12/14/18 08:25 Dose: 0.4 mg Zolpidem Tartrate (Ambien) 5 mg PO BEDTIME PRN PRN Reason: Sleep Discontinued Medications Dextrose/Water (Dextrose 50% In Water) 50 ml IVPUSH ONETIME ONE Stop: 12/13/18 08:21 Last Admin: 12/13/18 08:25 Dose: 50 ml Iopamidol (Isovue-370 (76%)) 100 ml IVPUSH ONETIME ONE Stop: 12/13/18 12:36 Last Admin: 12/13/18 14:05 Dose: 75 ml Sodium Chloride (Saline Flush) 10 ml FLUSH ASDIRECTED PRN PRN Reason: Keep Vein Open Last Admin: 12/13/18 08:25 Dose: 10 ml - Exam General: Reports: Alert, Oriented Neck: Reports: Supple Lungs: Reports: Clear to Auscultation, Normal Respiratory Effort Cardiovascular: Reports: Regular Rate, Regular Rhythm GI/Abdominal Exam: Normal Bowel Sounds, Soft, Non-Tender Skin: Reports: Warm Neurological: Reports: No New Focal Deficit, Normal Speech, Strength Equal Bilateral
[2018-12-14 11:23] VITALS: BP 147/69; PULSE 64
== END 2018-12-14 11:30 | disposition home or self-care (01) ==
LOC: DL.ED 07:48 → DL.MS 09:05
PROVIDERS: ADMIT Internal Medicine; ATTEND Internal Medicine
DX: R51 Headache (principal); R29.898 Other symptoms and signs involving the musculoskeletal system; R20.2 Paresthesia of skin; E11.649 Type 2 diabetes mellitus with hypoglycemia without coma; I25.10 Atherosclerotic heart disease of native coronary artery without angina pectoris; E78.00 Pure hypercholesterolemia, unspecified; I10 Essential (primary) hypertension; M19.90 Unspecified osteoarthritis, unspecified site; Z79.82 Long term (current) use of aspirin; Z79.02 Long term (current) use of antithrombotics/antiplatelets; Z79.899 Other long term (current) drug therapy; Z79.4 Long term (current) use of insulin; Z89.512 Acquired absence of left leg below knee; Z89.511 Acquired absence of right leg below knee; Z87.891 Personal history of nicotine dependence
CPT/HCPCS: 36415; 70450; 70496; 70498; 70551; 80048; 80053; 80305; 81001; 82962; 84484; 85025; 85610; 85730; 87086; 87088; 87186; 92610; 93005; 93306; 96374; 97162; 97165; 99285; A9270; G0480; J1644; J1815; J3480; Q9967; 96361; 96372; G0378; J7060

== ENCOUNTER 2019-08-10 11:54 | Emergency (ER) | payer MEDICARE, OTHER | END 2019-08-10 14:57 | disposition left against medical advice (07) | LOC: DL.ED 11:54 | DX: Z53.21 Procedure and treatment not carried out due to patient leaving prior to being seen by health care provider (principal) ==

== ENCOUNTER 2021-01-31 17:09 | Inpatient (IN) | payer MEDICARE, OTHER ==
[2021-01-31 18:26] LABS: ANION GAP 19.6 mEq/L (7-13)
[2021-01-31] MEDS ORDERED: Sodium Chloride 0.9% 1,000 ML IV ONE (18:32)
[2021-01-31] MEDS ORDERED: cefTRIAXone 2 GM in Sodium Chloride 0.9% 100 ML IV ONE (18:33)
[2021-01-31] MEDS ORDERED: Ciprofloxacin in D5W 400 MG in Premix Bag 1 BAG IV ONE ×2 (18:34)
[2021-01-31 19:41] LABS: CORONAVIRUS COVID-19 NAA NEGATIVE (NEGATIVE)
[2021-01-31] MEDS ORDERED: Albuterol 0.083% 2.5 MG/3 ML Neb Soln NEB PRN (19:47)
[2021-01-31] MEDS ORDERED: Morphine 2 MG/ML SYRINGE IVPUSH PRN (19:47)
[2021-01-31] MEDS ORDERED: Ondansetron 4 MG/2 ML SDV IVPUSH PRN (19:47)
[2021-01-31] MEDS: Aspirin 81 MG Tab.Chew PO SCH ×2 (20:04→20:54)
[2021-01-31] MEDS: Tamsulosin 0.4 MG Cap.ER PO SCH ×2 (20:04→20:54)
[2021-01-31] MEDS: Donepezil 10 MG Tab PO SCH (20:54)
[2021-01-31] MEDS: Docusate Sodium 100 MG Cap PO SCH (20:54)
[2021-01-31] MEDS: atorvaSTATin 20 MG Tab PO SCH (20:55)
[2021-01-31] MEDS: Sodium Chloride 0.9% 10 ML Syringe FLUSH SCH (20:59)
[2021-01-31] MEDS: Heparin Sodium 5,000 Units/ML Vial SUBCUT SCH (21:00)
[2021-02-01 07:25] LABS: ANION GAP 18.3 mEq/L (7-13); CHLORIDE,CL 105 mmol/L (98-107); SODIUM,NA 141 mmol/L (136-145)
[2021-02-01] MEDS ORDERED: Non-Formulary Medication 1 Each (Insulin Aspart [Novolog] 100 UNIT/ML Pen) SQ SCH (08:00)
[2021-02-01] MEDS ORDERED: Non-Formulary Medication 1 Each (Magnesium Oxide [Magnesium Oxide] 400 MG Tablet) PO SCH (09:00)
[2021-02-01] MEDS: Insulin Lispro 100 Units/ML 3 ML Vial SUBCUT SCH ×3 (09:20→17:15)
[2021-02-01] MEDS: Tamsulosin 0.4 MG Cap.ER PO SCH (09:20)
[2021-02-01] MEDS: Famotidine 20 MG Tab PO SCH (09:21)
[2021-02-01] MEDS: Aspirin 81 MG Tab.Chew PO SCH (09:21)
[2021-02-01] MEDS: Brimonidine 0.15% Ophth Soln 5 ML Bottle EYEBOTH SCH ×3 (09:22→21:16)
[2021-02-01] MEDS: Heparin Sodium 5,000 Units/ML Vial SUBCUT SCH ×2 (09:22→21:27)
[2021-02-01] MEDS: Sodium Chloride 0.9% 10 ML Syringe FLUSH SCH ×2 (09:26→21:11)
[2021-02-01] MEDS: Insulin Glarg,Human.Rec.Analog 100 Unit/ML SUBCUT SCH (09:37)
[2021-02-01] MEDS: Tobramycin 0.3% Ophth Drops 5 ML Bottle EYERT SCH ×2 (09:40→16:20)
[2021-02-01] MEDS ORDERED: cefTRIAXone 1 GM in Sodium Chloride 0.9% 50 ML IV SCH (10:15)
[2021-02-01] MEDS: Lisinopril 5 MG Tab PO SCH (11:22)
[2021-02-01] MEDS: cefTRIAXone 1 GM in Sodium Chloride 0.9% 50 ML IV SCH ×2 (12:30→21:11)
[2021-02-01] MEDS ORDERED: Sodium Chloride 0.9% 500 ML IV ONE (17:26)
[2021-02-01] MEDS: atorvaSTATin 20 MG Tab PO SCH (21:16)
[2021-02-01] MEDS: Docusate Sodium 100 MG Cap PO SCH (21:16)
[2021-02-01] MEDS: Donepezil 10 MG Tab PO SCH (21:16)
[2021-02-02] MEDS: Heparin Sodium 5,000 Units/ML Vial SUBCUT SCH ×3 (06:21→22:20)
[2021-02-02 07:07] LABS: ANION GAP 14.9 mEq/L (7-13); CHLORIDE,CL 107 mmol/L (98-107); SODIUM,NA 142 mmol/L (136-145)
[2021-02-02] MEDS: Insulin Lispro 100 Units/ML 3 ML Vial SUBCUT SCH ×3 (08:34→17:43)
[2021-02-02] MEDS: Tamsulosin 0.4 MG Cap.ER PO SCH (08:35)
[2021-02-02] MEDS: Brimonidine 0.15% Ophth Soln 5 ML Bottle EYEBOTH SCH ×3 (08:35→20:39)
[2021-02-02] MEDS: Aspirin 81 MG Tab.Chew PO SCH (08:35)
[2021-02-02] MEDS: Famotidine 20 MG Tab PO SCH (08:35)
[2021-02-02] MEDS: Lisinopril 5 MG Tab PO SCH (08:40)
[2021-02-02] MEDS: Sodium Chloride 0.9% 10 ML Syringe FLUSH SCH ×2 (08:41→20:39)
[2021-02-02] MEDS: Tobramycin 0.3% Ophth Drops 5 ML Bottle EYERT SCH (08:41)
[2021-02-02] MEDS: cefTRIAXone 1 GM in Sodium Chloride 0.9% 50 ML IV SCH ×2 (08:43→20:39)
[2021-02-02] MEDS: Insulin Glarg,Human.Rec.Analog 100 Unit/ML SUBCUT SCH (12:15)
[2021-02-02] MEDS ORDERED: Sodium Chloride 0.9% 500 ML IV ONE (18:04)
[2021-02-02] MEDS: Midodrine 2.5 MG Tab PO SCH (18:21)
[2021-02-02] MEDS: Donepezil 10 MG Tab PO SCH (20:38)
[2021-02-02] MEDS: Docusate Sodium 100 MG Cap PO SCH (20:38)
[2021-02-02] MEDS: atorvaSTATin 20 MG Tab PO SCH (20:39)
[2021-02-03] MEDS: Acetaminophen 325 MG Tab PO PRN ×2 (01:05→22:32)
[2021-02-03] MEDS: Heparin Sodium 5,000 Units/ML Vial SUBCUT SCH ×3 (05:52→22:25)
[2021-02-03] MEDS: Midodrine 2.5 MG Tab PO SCH ×4 (05:53→16:49)
[2021-02-03 06:44] LABS: ANION GAP 15.9 mEq/L (7-13); CHLORIDE,CL 107 mmol/L (98-107); SODIUM,NA 143 mmol/L (136-145)
[2021-02-03] MEDS: Tamsulosin 0.4 MG Cap.ER PO SCH (08:48)
[2021-02-03] MEDS: Insulin Lispro 100 Units/ML 3 ML Vial SUBCUT SCH ×3 (08:48→18:23)
[2021-02-03] MEDS: Famotidine 20 MG Tab PO SCH (08:49)
[2021-02-03] MEDS: Aspirin 81 MG Tab.Chew PO SCH (08:49)
[2021-02-03] MEDS: cefTRIAXone 1 GM in Sodium Chloride 0.9% 50 ML IV SCH ×2 (08:49→22:17)
[2021-02-03] MEDS ORDERED: Magnesium Hydroxide 400 MG/5 ML Susp 30 ML Cup PO ONE (08:50)
[2021-02-03] MEDS: Brimonidine 0.15% Ophth Soln 5 ML Bottle EYEBOTH SCH ×3 (08:51→22:14)
[2021-02-03] MEDS: Tobramycin 0.3% Ophth Drops 5 ML Bottle EYERT SCH (08:51)
[2021-02-03] MEDS: Insulin Glarg,Human.Rec.Analog 100 Unit/ML SUBCUT SCH (08:51)
[2021-02-03] MEDS: Sodium Chloride 0.9% 10 ML Syringe FLUSH SCH ×2 (08:52→22:20)
[2021-02-03] MEDS: Donepezil 10 MG Tab PO SCH (22:23)
[2021-02-03] MEDS: atorvaSTATin 20 MG Tab PO SCH (22:23)
[2021-02-03] MEDS: Docusate Sodium 100 MG Cap PO SCH (22:24)
[2021-02-04] MEDS: Midodrine 2.5 MG Tab PO SCH ×3 (05:42→17:11)
[2021-02-04] MEDS: Heparin Sodium 5,000 Units/ML Vial SUBCUT SCH ×4 (05:43→21:13)
[2021-02-04] MEDS: Sodium Chloride 0.9% 10 ML Syringe FLUSH SCH ×2 (09:00→20:57)
[2021-02-04] MEDS: Insulin Lispro 100 Units/ML 3 ML Vial SUBCUT SCH ×3 (09:24→17:27)
[2021-02-04] MEDS: Insulin Glarg,Human.Rec.Analog 100 Unit/ML SUBCUT SCH (09:25)
[2021-02-04] MEDS: Tobramycin 0.3% Ophth Drops 5 ML Bottle EYERT SCH (09:29)
[2021-02-04] MEDS: Brimonidine 0.15% Ophth Soln 5 ML Bottle EYEBOTH SCH ×3 (09:29→20:55)
[2021-02-04] MEDS: Aspirin 81 MG Tab.Chew PO SCH (09:30)
[2021-02-04] MEDS: Famotidine 20 MG Tab PO SCH (09:30)
[2021-02-04] MEDS: Tamsulosin 0.4 MG Cap.ER PO SCH (09:30)
[2021-02-04] MEDS: cefTRIAXone 1 GM in Sodium Chloride 0.9% 50 ML IV SCH ×2 (09:36→20:57)
[2021-02-04] MEDS: Melatonin 3 MG Tab PO PRN (20:55)
[2021-02-04] MEDS: Docusate Sodium 100 MG Cap PO SCH (20:55)
[2021-02-04] MEDS: atorvaSTATin 20 MG Tab PO SCH (20:55)
[2021-02-04] MEDS: Donepezil 10 MG Tab PO SCH (20:55)
[2021-02-05] MEDS: Heparin Sodium 5,000 Units/ML Vial SUBCUT SCH ×3 (05:21→21:48)
[2021-02-05] MEDS: Midodrine 2.5 MG Tab PO SCH ×3 (05:23→17:17)
[2021-02-05] MEDS: Insulin Lispro 100 Units/ML 3 ML Vial SUBCUT SCH ×3 (08:09→17:18)
[2021-02-05] MEDS: Famotidine 20 MG Tab PO SCH (08:10)
[2021-02-05] MEDS: Aspirin 81 MG Tab.Chew PO SCH (08:10)
[2021-02-05] MEDS: Tamsulosin 0.4 MG Cap.ER PO SCH (08:10)
[2021-02-05] MEDS: cefTRIAXone 1 GM in Sodium Chloride 0.9% 50 ML IV SCH ×2 (08:13→21:45)
[2021-02-05] MEDS: Sodium Chloride 0.9% 10 ML Syringe FLUSH SCH ×2 (08:18→21:47)
[2021-02-05] MEDS: Insulin Glarg,Human.Rec.Analog 100 Unit/ML SUBCUT SCH (10:31)
[2021-02-05] MEDS: Brimonidine 0.15% Ophth Soln 5 ML Bottle EYEBOTH SCH ×3 (10:33→21:47)
[2021-02-05] MEDS: Tobramycin 0.3% Ophth Drops 5 ML Bottle EYERT SCH (10:34)
[2021-02-05] MEDS: Docusate Sodium 100 MG Cap PO SCH (21:43)
[2021-02-05] MEDS: Donepezil 10 MG Tab PO SCH (21:44)
[2021-02-05] MEDS: atorvaSTATin 20 MG Tab PO SCH (21:45)
[2021-02-06] MEDS: Midodrine 2.5 MG Tab PO SCH ×4 (05:27→17:06)
[2021-02-06] MEDS: Heparin Sodium 5,000 Units/ML Vial SUBCUT SCH ×3 (05:27→21:37)
[2021-02-06] MEDS: Tamsulosin 0.4 MG Cap.ER PO SCH (11:12)
[2021-02-06] MEDS: Famotidine 20 MG Tab PO SCH (11:12)
[2021-02-06] MEDS: Aspirin 81 MG Tab.Chew PO SCH (11:12)
[2021-02-06] MEDS: Sodium Chloride 0.9% 10 ML Syringe FLUSH SCH ×2 (11:13→21:38)
[2021-02-06] MEDS: Brimonidine 0.15% Ophth Soln 5 ML Bottle EYEBOTH SCH ×3 (11:14→21:48)
[2021-02-06] MEDS: Tobramycin 0.3% Ophth Drops 5 ML Bottle EYERT SCH (11:14)
[2021-02-06] MEDS: Insulin Glarg,Human.Rec.Analog 100 Unit/ML SUBCUT SCH (11:20)
[2021-02-06] MEDS: cefTRIAXone 1 GM in Sodium Chloride 0.9% 50 ML IV SCH ×2 (11:21→21:41)
[2021-02-06] MEDS: Insulin Lispro 100 Units/ML 3 ML Vial SUBCUT SCH ×3 (11:25→17:08)
[2021-02-06] MEDS: Docusate Sodium 100 MG Cap PO SCH (21:38)
[2021-02-06] MEDS: atorvaSTATin 20 MG Tab PO SCH (21:38)
[2021-02-06] MEDS: Donepezil 10 MG Tab PO SCH (21:43)
[2021-02-06] MEDS: Melatonin 3 MG Tab PO PRN (23:17)
[2021-02-06] MEDS: Acetaminophen 325 MG Tab PO PRN (23:17)
[2021-02-07] MEDS: Heparin Sodium 5,000 Units/ML Vial SUBCUT SCH ×3 (06:28→21:00)
[2021-02-07] MEDS: Famotidine 20 MG Tab PO SCH (08:23)
[2021-02-07] MEDS: Aspirin 81 MG Tab.Chew PO SCH (08:23)
[2021-02-07] MEDS: Tamsulosin 0.4 MG Cap.ER PO SCH (08:23)
[2021-02-07] MEDS: Midodrine 2.5 MG Tab PO SCH ×3 (08:24→16:47)
[2021-02-07] MEDS: Tobramycin 0.3% Ophth Drops 5 ML Bottle EYERT SCH (08:26)
[2021-02-07] MEDS: Brimonidine 0.15% Ophth Soln 5 ML Bottle EYEBOTH SCH ×4 (08:30→20:32)
[2021-02-07] MEDS: Insulin Lispro 100 Units/ML 3 ML Vial SUBCUT SCH ×3 (08:31→17:17)
[2021-02-07] MEDS: cefTRIAXone 1 GM in Sodium Chloride 0.9% 50 ML IV SCH ×2 (08:43→20:56)
[2021-02-07] MEDS: Sodium Chloride 0.9% 10 ML Syringe FLUSH SCH ×2 (08:44→20:52)
[2021-02-07] MEDS: Insulin Glarg,Human.Rec.Analog 100 Unit/ML SUBCUT SCH ×2 (09:54→09:57)
[2021-02-07 10:34] LABS: CHLORIDE,CL 105 mmol/L (98-107); SODIUM,NA 143 mmol/L (136-145)
[2021-02-07] MEDS: Docusate Sodium 100 MG Cap PO SCH (20:51)
[2021-02-07] MEDS: Donepezil 10 MG Tab PO SCH (20:51)
[2021-02-07] MEDS: atorvaSTATin 20 MG Tab PO SCH (20:52)
[2021-02-07] MEDS: Acetaminophen 325 MG Tab PO PRN (22:24)
[2021-02-07] MEDS: Melatonin 3 MG Tab PO PRN (22:25)
[2021-02-08] MEDS: Heparin Sodium 5,000 Units/ML Vial SUBCUT SCH ×3 (06:16→21:46)
[2021-02-08 06:32] LABS: CHLORIDE,CL 107 mmol/L (98-107); SODIUM,NA 145 mmol/L (136-145)
[2021-02-08] MEDS: Insulin Lispro 100 Units/ML 3 ML Vial SUBCUT SCH ×3 (14:10→17:30)
[2021-02-08] MEDS: Brimonidine 0.15% Ophth Soln 5 ML Bottle EYEBOTH SCH ×3 (14:12→21:45)
[2021-02-08] MEDS: Midodrine 2.5 MG Tab PO SCH ×3 (14:12→16:31)
[2021-02-08] MEDS: Tamsulosin 0.4 MG Cap.ER PO SCH (14:21)
[2021-02-08] MEDS: Famotidine 20 MG Tab PO SCH (14:21)
[2021-02-08] MEDS: Aspirin 81 MG Tab.Chew PO SCH (14:22)
[2021-02-08] MEDS: Insulin Glarg,Human.Rec.Analog 100 Unit/ML SUBCUT SCH (14:22)
[2021-02-08] MEDS: Tobramycin 0.3% Ophth Drops 5 ML Bottle EYERT SCH (14:23)
[2021-02-08] MEDS: Sodium Chloride 0.9% 10 ML Syringe FLUSH SCH ×2 (14:25→21:49)
[2021-02-08] MEDS: cefTRIAXone 1 GM in Sodium Chloride 0.9% 50 ML IV SCH ×2 (14:25→21:49)
[2021-02-08] MEDS: Docusate Sodium 100 MG Cap PO SCH (21:47)
[2021-02-08] MEDS: Donepezil 10 MG Tab PO SCH (21:47)
[2021-02-08] MEDS: atorvaSTATin 20 MG Tab PO SCH (21:48)
[2021-02-08] MEDS: Melatonin 3 MG Tab PO PRN (22:03)
[2021-02-09 01:57] LABS: HEMOGLOBIN A1C 7.9 % (<5.7)
[2021-02-09] MEDS: Heparin Sodium 5,000 Units/ML Vial SUBCUT SCH ×3 (05:28→22:15)
[2021-02-09] MEDS: Insulin Lispro 100 Units/ML 3 ML Vial SUBCUT SCH ×3 (09:31→18:23)
[2021-02-09] MEDS: Tamsulosin 0.4 MG Cap.ER PO SCH (09:32)
[2021-02-09] MEDS: Famotidine 20 MG Tab PO SCH (09:33)
[2021-02-09] MEDS: Aspirin 81 MG Tab.Chew PO SCH (09:34)
[2021-02-09] MEDS: Sodium Chloride 0.9% 10 ML Syringe FLUSH SCH ×2 (09:34→22:06)
[2021-02-09] MEDS: Brimonidine 0.15% Ophth Soln 5 ML Bottle EYEBOTH SCH ×3 (09:34→22:00)
[2021-02-09] MEDS: Tobramycin 0.3% Ophth Drops 5 ML Bottle EYERT SCH (09:35)
[2021-02-09] MEDS: cefTRIAXone 1 GM in Sodium Chloride 0.9% 50 ML IV SCH ×2 (09:35→22:03)
[2021-02-09] MEDS: Midodrine 2.5 MG Tab PO SCH ×3 (09:57→16:10)
[2021-02-09] MEDS: Docusate Sodium 100 MG Cap PO SCH (22:00)
[2021-02-09] MEDS: atorvaSTATin 20 MG Tab PO SCH (22:01)
[2021-02-09] MEDS: Donepezil 10 MG Tab PO SCH (22:01)
[2021-02-09] MEDS: Melatonin 3 MG Tab PO PRN (22:04)
[2021-02-10] MEDS: Heparin Sodium 5,000 Units/ML Vial SUBCUT SCH ×3 (05:26→22:06)
[2021-02-10 07:33] LABS: CHLORIDE,CL 108 mmol/L (98-107)
[2021-02-10 07:35] LABS: SODIUM,NA 144 mmol/L (136-145)
[2021-02-10] MEDS: Insulin Lispro 100 Units/ML 3 ML Vial SUBCUT SCH ×3 (08:37→17:40)
[2021-02-10] MEDS: Famotidine 20 MG Tab PO SCH (08:38)
[2021-02-10] MEDS: Midodrine 2.5 MG Tab PO SCH ×3 (08:38→16:45)
[2021-02-10] MEDS: Brimonidine 0.15% Ophth Soln 5 ML Bottle EYEBOTH SCH ×3 (08:39→22:04)
[2021-02-10] MEDS: Aspirin 81 MG Tab.Chew PO SCH (08:39)
[2021-02-10] MEDS: Tamsulosin 0.4 MG Cap.ER PO SCH (08:39)
[2021-02-10] MEDS: Tobramycin 0.3% Ophth Drops 5 ML Bottle EYERT SCH (08:40)
[2021-02-10] MEDS: Sodium Chloride 0.9% 10 ML Syringe FLUSH SCH ×2 (08:40→22:07)
[2021-02-10] MEDS: Donepezil 10 MG Tab PO SCH (22:04)
[2021-02-10] MEDS: Acetaminophen 325 MG Tab PO PRN (22:04)
[2021-02-10] MEDS: Melatonin 3 MG Tab PO PRN (22:05)
[2021-02-10] MEDS: atorvaSTATin 20 MG Tab PO SCH (22:05)
[2021-02-10] MEDS: Docusate Sodium 100 MG Cap PO SCH (22:06)
[2021-02-11] MEDS: Heparin Sodium 5,000 Units/ML Vial SUBCUT SCH ×3 (07:40→22:37)
[2021-02-11] MEDS: Sodium Chloride 0.9% 10 ML Syringe FLUSH SCH ×2 (09:00→20:10)
[2021-02-11] MEDS ORDERED: Magnesium Hydroxide 400 MG/5 ML Susp 30 ML Cup PO ONE (10:30)
[2021-02-11] MEDS: Midodrine 2.5 MG Tab PO SCH ×3 (10:35→17:19)
[2021-02-11] MEDS: Aspirin 81 MG Tab.Chew PO SCH (10:37)
[2021-02-11] MEDS: Famotidine 20 MG Tab PO SCH (10:37)
[2021-02-11] MEDS: Tamsulosin 0.4 MG Cap.ER PO SCH (10:38)
[2021-02-11] MEDS: Brimonidine 0.15% Ophth Soln 5 ML Bottle EYEBOTH SCH ×3 (10:38→20:09)
[2021-02-11] MEDS: Insulin Lispro 100 Units/ML 3 ML Vial SUBCUT SCH ×3 (10:39→17:19)
[2021-02-11] MEDS: Tobramycin 0.3% Ophth Drops 5 ML Bottle EYERT SCH (10:40)
[2021-02-11] MEDS: Donepezil 10 MG Tab PO SCH (20:08)
[2021-02-11] MEDS: Melatonin 3 MG Tab PO PRN (20:08)
[2021-02-11] MEDS: atorvaSTATin 20 MG Tab PO SCH (20:08)
[2021-02-11] MEDS: Docusate Sodium 100 MG Cap PO SCH (20:08)
[2021-02-11] MEDS: Acetaminophen 325 MG Tab PO PRN (20:10)
[2021-02-12] MEDS: Heparin Sodium 5,000 Units/ML Vial SUBCUT SCH ×3 (05:21→22:32)
[2021-02-12] MEDS: Tamsulosin 0.4 MG Cap.ER PO SCH (10:14)
[2021-02-12] MEDS: Famotidine 20 MG Tab PO SCH (10:14)
[2021-02-12] MEDS: Aspirin 81 MG Tab.Chew PO SCH (10:14)
[2021-02-12] MEDS: Midodrine 2.5 MG Tab PO SCH ×3 (10:15→18:16)
[2021-02-12] MEDS: Brimonidine 0.15% Ophth Soln 5 ML Bottle EYEBOTH SCH ×3 (10:16→22:31)
[2021-02-12] MEDS: Sodium Chloride 0.9% 10 ML Syringe FLUSH SCH ×2 (10:16→22:31)
[2021-02-12] MEDS: Insulin Lispro 100 Units/ML 3 ML Vial SUBCUT SCH ×3 (10:16→17:43)
[2021-02-12] MEDS: Tobramycin 0.3% Ophth Drops 5 ML Bottle EYERT SCH (10:16)
[2021-02-12] MEDS ORDERED: Lactulose Soln 10 GM/15 ML 30 ML UD Cup PO ONE (11:52)
[2021-02-12] MEDS: Docusate Sodium 100 MG Cap PO SCH (22:30)
[2021-02-12] MEDS: Donepezil 10 MG Tab PO SCH (22:30)
[2021-02-12] MEDS: atorvaSTATin 20 MG Tab PO SCH (22:31)
[2021-02-13] MEDS: oxyCODONE 5 MG Tab PO PRN ×2 (05:01→21:48)
[2021-02-13] MEDS: Heparin Sodium 5,000 Units/ML Vial SUBCUT SCH ×3 (05:08→21:51)
[2021-02-13] MEDS: Aspirin 81 MG Tab.Chew PO SCH (08:32)
[2021-02-13] MEDS: Midodrine 2.5 MG Tab PO SCH ×3 (08:32→17:22)
[2021-02-13] MEDS: Tamsulosin 0.4 MG Cap.ER PO SCH (08:32)
[2021-02-13] MEDS: Famotidine 20 MG Tab PO SCH (08:32)
[2021-02-13] MEDS: Insulin Lispro 100 Units/ML 3 ML Vial SUBCUT SCH ×3 (08:37→17:21)
[2021-02-13] MEDS: Sodium Chloride 0.9% 10 ML Syringe FLUSH SCH ×2 (08:38→21:51)
[2021-02-13] MEDS: Brimonidine 0.15% Ophth Soln 5 ML Bottle EYEBOTH SCH ×3 (08:39→21:49)
[2021-02-13] MEDS: Tobramycin 0.3% Ophth Drops 5 ML Bottle EYERT SCH (08:40)
[2021-02-13] MEDS: Docusate Sodium 100 MG Cap PO SCH (21:47)
[2021-02-13] MEDS: atorvaSTATin 20 MG Tab PO SCH (21:48)
[2021-02-13] MEDS: Melatonin 3 MG Tab PO PRN (21:48)
[2021-02-13] MEDS: Donepezil 10 MG Tab PO SCH (21:49)
[2021-02-14] MEDS: Heparin Sodium 5,000 Units/ML Vial SUBCUT SCH ×3 (05:36→21:06)
[2021-02-14] MEDS: Insulin Lispro 100 Units/ML 3 ML Vial SUBCUT SCH ×3 (08:55→16:23)
[2021-02-14] MEDS: Famotidine 20 MG Tab PO SCH (08:55)
[2021-02-14] MEDS: Tamsulosin 0.4 MG Cap.ER PO SCH (08:55)
[2021-02-14] MEDS: Aspirin 81 MG Tab.Chew PO SCH (08:55)
[2021-02-14] MEDS: Midodrine 2.5 MG Tab PO SCH ×3 (08:55→16:20)
[2021-02-14] MEDS: Tobramycin 0.3% Ophth Drops 5 ML Bottle EYERT SCH (08:56)
[2021-02-14] MEDS: Brimonidine 0.15% Ophth Soln 5 ML Bottle EYEBOTH SCH ×3 (08:56→21:06)
[2021-02-14] MEDS: Sodium Chloride 0.9% 10 ML Syringe FLUSH SCH ×2 (08:57→21:20)
[2021-02-14] MEDS: Ciprofloxacin 0.3% Ophth Soln 5 ML Bottle EYEBOTH SCH ×3 (16:20→21:06)
[2021-02-14] MEDS: oxyCODONE 5 MG Tab PO PRN (21:04)
[2021-02-14] MEDS: atorvaSTATin 20 MG Tab PO SCH (21:05)
[2021-02-14] MEDS: Melatonin 3 MG Tab PO PRN (21:05)
[2021-02-14] MEDS: Docusate Sodium 100 MG Cap PO SCH (21:05)
[2021-02-14] MEDS: Donepezil 10 MG Tab PO SCH (21:05)
[2021-02-15] MEDS: Ciprofloxacin 0.3% Ophth Soln 5 ML Bottle EYEBOTH SCH ×6 (01:53→22:09)
[2021-02-15] MEDS: Acetaminophen 325 MG Tab PO PRN (01:55)
[2021-02-15] MEDS: Heparin Sodium 5,000 Units/ML Vial SUBCUT SCH ×3 (05:03→22:11)
[2021-02-15] MEDS: Aspirin 81 MG Tab.Chew PO SCH (09:14)
[2021-02-15] MEDS: Sodium Chloride 0.9% 10 ML Syringe FLUSH SCH ×2 (09:14→22:17)
[2021-02-15] MEDS: Famotidine 20 MG Tab PO SCH (09:14)
[2021-02-15] MEDS: Tamsulosin 0.4 MG Cap.ER PO SCH (09:14)
[2021-02-15] MEDS: Brimonidine 0.15% Ophth Soln 5 ML Bottle EYEBOTH SCH ×3 (09:15→22:09)
[2021-02-15] MEDS: Midodrine 2.5 MG Tab PO SCH ×3 (09:15→16:08)
[2021-02-15] MEDS: Insulin Lispro 100 Units/ML 3 ML Vial SUBCUT SCH ×3 (09:15→18:21)
[2021-02-15] MEDS: atorvaSTATin 20 MG Tab PO SCH (22:07)
[2021-02-15] MEDS: Melatonin 3 MG Tab PO PRN (22:07)
[2021-02-15] MEDS: Docusate Sodium 100 MG Cap PO SCH (22:07)
[2021-02-15] MEDS: oxyCODONE 5 MG Tab PO PRN (22:08)
[2021-02-15] MEDS: Donepezil 10 MG Tab PO SCH (22:08)
[2021-02-16] MEDS: Acetaminophen 325 MG Tab PO PRN (00:48)
[2021-02-16] MEDS: Ciprofloxacin 0.3% Ophth Soln 5 ML Bottle EYEBOTH SCH ×6 (01:43→22:44)
[2021-02-16] MEDS: Heparin Sodium 5,000 Units/ML Vial SUBCUT SCH ×3 (06:28→22:42)
[2021-02-16] MEDS: Insulin Lispro 100 Units/ML 3 ML Vial SUBCUT SCH ×3 (09:43→17:23)
[2021-02-16] MEDS: Famotidine 20 MG Tab PO SCH (09:45)
[2021-02-16] MEDS: Tamsulosin 0.4 MG Cap.ER PO SCH (09:45)
[2021-02-16] MEDS: Sodium Chloride 0.9% 10 ML Syringe FLUSH SCH ×2 (09:45→20:34)
[2021-02-16] MEDS: Aspirin 81 MG Tab.Chew PO SCH (09:46)
[2021-02-16] MEDS: Brimonidine 0.15% Ophth Soln 5 ML Bottle EYEBOTH SCH ×3 (09:49→20:28)
[2021-02-16] MEDS: Midodrine 2.5 MG Tab PO SCH ×3 (09:50→17:22)
[2021-02-16] MEDS ORDERED: 50% Dextrose in Water 50 ML Syringe IVPUSH PRN (20:16)
[2021-02-16] MEDS ORDERED: Glucagon,Human Recombinant 1 MG Vial IM PRN (20:16)
[2021-02-16] MEDS: Docusate Sodium 100 MG Cap PO SCH (20:28)
[2021-02-16] MEDS: oxyCODONE 5 MG Tab PO PRN (20:29)
[2021-02-16] MEDS: Melatonin 3 MG Tab PO PRN (20:30)
[2021-02-16] MEDS: atorvaSTATin 20 MG Tab PO SCH (20:30)
[2021-02-16] MEDS: Donepezil 10 MG Tab PO SCH (20:32)
[2021-02-16] MEDS: Insulin Glarg,Human.Rec.Analog 100 Unit/ML SUBCUT SCH (20:47)
[2021-02-17] MEDS: Ciprofloxacin 0.3% Ophth Soln 5 ML Bottle EYEBOTH SCH ×6 (02:05→21:23)
[2021-02-17] MEDS: Heparin Sodium 5,000 Units/ML Vial SUBCUT SCH ×3 (05:36→21:22)
[2021-02-17 06:32] LABS: ANION GAP 14.3 mEq/L (7-13); CHLORIDE,CL 102 mmol/L (98-107); SODIUM,NA 138 mmol/L (136-145)
[2021-02-17] MEDS ORDERED: Magnesium Sulfate/D5W 1 GM/100 ML BAG IV ONE (07:05)
[2021-02-17] MEDS: metFORMIN 500 MG Tab PO SCH ×2 (08:12→17:56)
[2021-02-17] MEDS: Famotidine 20 MG Tab PO SCH (08:12)
[2021-02-17] MEDS: Tamsulosin 0.4 MG Cap.ER PO SCH (08:12)
[2021-02-17] MEDS: Midodrine 2.5 MG Tab PO SCH ×3 (08:14→16:23)
[2021-02-17] MEDS: Insulin Lispro 100 Units/ML 3 ML Vial SUBCUT SCH ×3 (08:15→17:54)
[2021-02-17] MEDS: Aspirin 81 MG Tab.Chew PO SCH (08:19)
[2021-02-17] MEDS: Insulin Glarg,Human.Rec.Analog 100 Unit/ML SUBCUT SCH ×2 (08:20→21:24)
[2021-02-17] MEDS: Sodium Chloride 0.9% 10 ML Syringe FLUSH SCH ×2 (08:21→21:25)
[2021-02-17] MEDS: Brimonidine 0.15% Ophth Soln 5 ML Bottle EYEBOTH SCH ×3 (08:21→21:21)
[2021-02-17] MEDS: atorvaSTATin 20 MG Tab PO SCH (21:26)
[2021-02-17] MEDS: Docusate Sodium 100 MG Cap PO SCH (21:26)
[2021-02-17] MEDS: Donepezil 10 MG Tab PO SCH (21:27)
[2021-02-17] MEDS: Melatonin 3 MG Tab PO PRN (21:34)
[2021-02-17] MEDS: oxyCODONE 5 MG Tab PO PRN (21:34)
[2021-02-17] MEDS: Acetaminophen 325 MG Tab PO PRN (23:48)
[2021-02-18] MEDS: Ciprofloxacin 0.3% Ophth Soln 5 ML Bottle EYEBOTH SCH ×6 (02:05→21:00)
[2021-02-18] MEDS: Heparin Sodium 5,000 Units/ML Vial SUBCUT SCH ×3 (06:27→21:00)
[2021-02-18] MEDS: Famotidine 20 MG Tab PO SCH (08:28)
[2021-02-18] MEDS: Aspirin 81 MG Tab.Chew PO SCH (08:28)
[2021-02-18] MEDS: metFORMIN 500 MG Tab PO SCH ×2 (08:28→18:17)
[2021-02-18] MEDS: Tamsulosin 0.4 MG Cap.ER PO SCH (08:28)
[2021-02-18] MEDS: Insulin Lispro 100 Units/ML 3 ML Vial SUBCUT SCH ×3 (08:29→17:44)
[2021-02-18] MEDS: Midodrine 2.5 MG Tab PO SCH ×3 (08:32→16:39)
[2021-02-18] MEDS: Sodium Chloride 0.9% 10 ML Syringe FLUSH SCH ×2 (08:35→21:01)
[2021-02-18] MEDS: Brimonidine 0.15% Ophth Soln 5 ML Bottle EYEBOTH SCH ×3 (08:35→20:56)
[2021-02-18] MEDS: Insulin Glarg,Human.Rec.Analog 100 Unit/ML SUBCUT SCH ×2 (08:36→20:57)
[2021-02-18] MEDS: Docusate Sodium 100 MG Cap PO SCH (20:59)
[2021-02-18] MEDS: Donepezil 10 MG Tab PO SCH (20:59)
[2021-02-18] MEDS: atorvaSTATin 20 MG Tab PO SCH (21:00)
[2021-02-19] MEDS ORDERED: QUEtiapine 25 MG Tab PO ONE (03:17)
[2021-02-19] MEDS: Ciprofloxacin 0.3% Ophth Soln 5 ML Bottle EYEBOTH SCH ×6 (03:37→23:17)
[2021-02-19] MEDS: Melatonin 3 MG Tab PO PRN (03:37)
[2021-02-19] MEDS: Heparin Sodium 5,000 Units/ML Vial SUBCUT SCH ×3 (06:30→21:21)
[2021-02-19 07:41] LABS: ANION GAP 18.3 mEq/L (7-13); CHLORIDE,CL 100 mmol/L (98-107); SODIUM,NA 137 mmol/L (136-145)
[2021-02-19] MEDS: metFORMIN 500 MG Tab PO SCH ×2 (09:28→17:42)
[2021-02-19] MEDS: Insulin Lispro 100 Units/ML 3 ML Vial SUBCUT SCH ×3 (09:29→18:06)
[2021-02-19] MEDS: Insulin Glarg,Human.Rec.Analog 100 Unit/ML SUBCUT SCH ×2 (09:30→21:23)
[2021-02-19] MEDS: Tamsulosin 0.4 MG Cap.ER PO SCH (09:30)
[2021-02-19] MEDS: Brimonidine 0.15% Ophth Soln 5 ML Bottle EYEBOTH SCH ×3 (09:30→21:21)
[2021-02-19] MEDS: Midodrine 2.5 MG Tab PO SCH ×3 (09:30→17:42)
[2021-02-19] MEDS: Aspirin 81 MG Tab.Chew PO SCH (09:30)
[2021-02-19] MEDS: Sodium Chloride 0.9% 10 ML Syringe FLUSH SCH ×2 (09:31→21:25)
[2021-02-19] MEDS: Famotidine 20 MG Tab PO SCH (09:31)
[2021-02-19] MEDS ORDERED: Magnesium Sulfate/Water 2 GM in Premix Bag 1 BAG IV ONE (11:25)
[2021-02-19] MEDS: atorvaSTATin 20 MG Tab PO SCH (21:21)
[2021-02-19] MEDS: Docusate Sodium 100 MG Cap PO SCH (21:21)
[2021-02-19] MEDS: Donepezil 10 MG Tab PO SCH (21:22)
[2021-02-19] MEDS: Acetaminophen 325 MG Tab PO PRN (23:16)
[2021-02-20] MEDS: Ciprofloxacin 0.3% Ophth Soln 5 ML Bottle EYEBOTH SCH ×6 (02:23→21:19)
[2021-02-20] MEDS: Heparin Sodium 5,000 Units/ML Vial SUBCUT SCH ×3 (05:37→21:22)
[2021-02-20] MEDS ORDERED: Bisacodyl 10 MG Supp RECTAL PRN (08:29)
[2021-02-20] MEDS: Insulin Lispro 100 Units/ML 3 ML Vial SUBCUT SCH ×3 (09:42→17:27)
[2021-02-20] MEDS: metFORMIN 500 MG Tab PO SCH ×2 (09:42→21:18)
[2021-02-20] MEDS: Midodrine 2.5 MG Tab PO SCH ×3 (09:44→15:20)
[2021-02-20] MEDS: Aspirin 81 MG Tab.Chew PO SCH (09:44)
[2021-02-20] MEDS: Tamsulosin 0.4 MG Cap.ER PO SCH (09:44)
[2021-02-20] MEDS: Sodium Chloride 0.9% 10 ML Syringe FLUSH SCH ×2 (09:45→21:19)
[2021-02-20] MEDS: Famotidine 20 MG Tab PO SCH (09:45)
[2021-02-20] MEDS: Brimonidine 0.15% Ophth Soln 5 ML Bottle EYEBOTH SCH ×3 (09:49→21:18)
[2021-02-20] MEDS: Insulin Glarg,Human.Rec.Analog 100 Unit/ML SUBCUT SCH ×2 (09:49→21:19)
[2021-02-20] MEDS: Acetaminophen 325 MG Tab PO PRN (15:19)
[2021-02-20] MEDS: Donepezil 10 MG Tab PO SCH (21:17)
[2021-02-20] MEDS: atorvaSTATin 20 MG Tab PO SCH (21:17)
[2021-02-20] MEDS: Docusate Sodium 100 MG Cap PO SCH (21:18)
[2021-02-21] MEDS: Acetaminophen 325 MG Tab PO PRN ×2 (01:29→14:29)
[2021-02-21] MEDS: Ciprofloxacin 0.3% Ophth Soln 5 ML Bottle EYEBOTH SCH ×6 (01:48→21:21)
[2021-02-21] MEDS: Heparin Sodium 5,000 Units/ML Vial SUBCUT SCH ×3 (05:09→21:21)
[2021-02-21 07:50] LABS: ANION GAP 16.2 mEq/L (7-13)
[2021-02-21] MEDS ORDERED: Magnesium Sulfate/Water 2 GM in Premix Bag 1 BAG IV ONE (09:00)
[2021-02-21] MEDS: metFORMIN 500 MG Tab PO SCH ×2 (09:54→17:02)
[2021-02-21] MEDS: Tamsulosin 0.4 MG Cap.ER PO SCH (09:55)
[2021-02-21] MEDS: Midodrine 2.5 MG Tab PO SCH ×3 (09:55→16:56)
[2021-02-21] MEDS: Insulin Lispro 100 Units/ML 3 ML Vial SUBCUT SCH ×3 (09:55→16:57)
[2021-02-21] MEDS: Famotidine 20 MG Tab PO SCH (09:55)
[2021-02-21] MEDS: Insulin Glarg,Human.Rec.Analog 100 Unit/ML SUBCUT SCH ×2 (09:57→21:19)
[2021-02-21] MEDS: Aspirin 81 MG Tab.Chew PO SCH (09:57)
[2021-02-21] MEDS: Brimonidine 0.15% Ophth Soln 5 ML Bottle EYEBOTH SCH ×3 (09:59→21:19)
[2021-02-21] MEDS: Sodium Chloride 0.9% 10 ML Syringe FLUSH SCH ×2 (09:59→21:21)
[2021-02-21] MEDS: Docusate Sodium 100 MG Cap PO SCH (21:20)
[2021-02-21] MEDS: atorvaSTATin 20 MG Tab PO SCH (21:20)
[2021-02-21] MEDS: Donepezil 10 MG Tab PO SCH (21:20)
[2021-02-22] MEDS: Acetaminophen 325 MG Tab PO PRN ×2 (00:12→21:11)
[2021-02-22] MEDS: Melatonin 3 MG Tab PO PRN ×2 (00:14→21:10)
[2021-02-22] MEDS: Ciprofloxacin 0.3% Ophth Soln 5 ML Bottle EYEBOTH SCH ×6 (02:52→21:12)
[2021-02-22] MEDS: Heparin Sodium 5,000 Units/ML Vial SUBCUT SCH ×3 (05:27→21:11)
[2021-02-22] MEDS: metFORMIN 500 MG Tab PO SCH ×2 (09:39→18:08)
[2021-02-22] MEDS: Tamsulosin 0.4 MG Cap.ER PO SCH (09:39)
[2021-02-22] MEDS: Famotidine 20 MG Tab PO SCH (09:39)
[2021-02-22] MEDS: Aspirin 81 MG Tab.Chew PO SCH (09:41)
[2021-02-22] MEDS: Insulin Glarg,Human.Rec.Analog 100 Unit/ML SUBCUT SCH ×2 (09:42→21:12)
[2021-02-22] MEDS: Sodium Chloride 0.9% 10 ML Syringe FLUSH SCH (09:43)
[2021-02-22] MEDS: Midodrine 2.5 MG Tab PO SCH ×3 (09:44→17:30)
[2021-02-22] MEDS: Insulin Lispro 100 Units/ML 3 ML Vial SUBCUT SCH ×3 (09:44→17:31)
[2021-02-22] MEDS: Brimonidine 0.15% Ophth Soln 5 ML Bottle EYEBOTH SCH ×3 (09:44→21:12)
[2021-02-22] MEDS: atorvaSTATin 20 MG Tab PO SCH (21:10)
[2021-02-22] MEDS: Donepezil 10 MG Tab PO SCH (21:10)
[2021-02-22] MEDS: Docusate Sodium 100 MG Cap PO SCH (21:10)
[2021-02-23] MEDS: Acetaminophen 325 MG Tab PO PRN (02:28)
[2021-02-23] MEDS: Ciprofloxacin 0.3% Ophth Soln 5 ML Bottle EYEBOTH SCH ×6 (02:40→21:48)
[2021-02-23] MEDS: Heparin Sodium 5,000 Units/ML Vial SUBCUT SCH ×3 (05:44→21:55)
[2021-02-23] MEDS: Insulin Glarg,Human.Rec.Analog 100 Unit/ML SUBCUT SCH ×2 (08:47→21:48)
[2021-02-23] MEDS: Brimonidine 0.15% Ophth Soln 5 ML Bottle EYEBOTH SCH ×3 (08:48→21:47)
[2021-02-23] MEDS: Tamsulosin 0.4 MG Cap.ER PO SCH (08:49)
[2021-02-23] MEDS: metFORMIN 500 MG Tab PO SCH ×2 (08:49→17:25)
[2021-02-23] MEDS: Famotidine 20 MG Tab PO SCH (08:49)
[2021-02-23] MEDS: Aspirin 81 MG Tab.Chew PO SCH (08:50)
[2021-02-23] MEDS: Insulin Lispro 100 Units/ML 3 ML Vial SUBCUT SCH ×3 (08:52→17:24)
[2021-02-23] MEDS: Midodrine 2.5 MG Tab PO SCH ×3 (08:53→16:58)
[2021-02-23] MEDS: Docusate Sodium 100 MG Cap PO SCH (21:45)
[2021-02-23] MEDS: Donepezil 10 MG Tab PO SCH (21:46)
[2021-02-23] MEDS: atorvaSTATin 20 MG Tab PO SCH (21:46)
[2021-02-24] MEDS: Heparin Sodium 5,000 Units/ML Vial SUBCUT SCH ×3 (07:14→21:19)
[2021-02-24] MEDS: Insulin Lispro 100 Units/ML 3 ML Vial SUBCUT SCH ×3 (08:25→17:07)
[2021-02-24] MEDS: Famotidine 20 MG Tab PO SCH (09:18)
[2021-02-24] MEDS: Midodrine 2.5 MG Tab PO SCH (09:18)
[2021-02-24] MEDS: metFORMIN 500 MG Tab PO SCH ×2 (09:18→17:47)
[2021-02-24] MEDS: Tamsulosin 0.4 MG Cap.ER PO SCH (09:19)
[2021-02-24] MEDS: Aspirin 81 MG Tab.Chew PO SCH (09:19)
[2021-02-24] MEDS: Brimonidine 0.15% Ophth Soln 5 ML Bottle EYEBOTH SCH ×3 (09:21→21:17)
[2021-02-24] MEDS: Ciprofloxacin 0.3% Ophth Soln 5 ML Bottle EYEBOTH SCH ×4 (09:22→21:19)
[2021-02-24] MEDS: Insulin Glarg,Human.Rec.Analog 100 Unit/ML SUBCUT SCH ×2 (09:24→21:17)
[2021-02-24] MEDS: Docusate Sodium 100 MG Cap PO SCH (21:18)
[2021-02-24] MEDS: atorvaSTATin 20 MG Tab PO SCH (21:18)
[2021-02-24] MEDS: Melatonin 3 MG Tab PO PRN (21:18)
[2021-02-24] MEDS: Donepezil 10 MG Tab PO SCH (21:18)
[2021-02-25] MEDS: Ciprofloxacin 0.3% Ophth Soln 5 ML Bottle EYEBOTH SCH ×6 (03:04→21:59)
[2021-02-25] MEDS: Heparin Sodium 5,000 Units/ML Vial SUBCUT SCH ×3 (05:49→21:59)
[2021-02-25] MEDS: Famotidine 20 MG Tab PO SCH (08:27)
[2021-02-25] MEDS: metFORMIN 500 MG Tab PO SCH ×2 (08:27→17:25)
[2021-02-25] MEDS: Tamsulosin 0.4 MG Cap.ER PO SCH (08:27)
[2021-02-25] MEDS: Aspirin 81 MG Tab.Chew PO SCH (08:27)
[2021-02-25] MEDS: Insulin Lispro 100 Units/ML 3 ML Vial SUBCUT SCH ×3 (08:28→17:08)
[2021-02-25] MEDS: Brimonidine 0.15% Ophth Soln 5 ML Bottle EYEBOTH SCH ×3 (08:29→20:15)
[2021-02-25] MEDS: Insulin Glarg,Human.Rec.Analog 100 Unit/ML SUBCUT SCH ×2 (08:33→20:18)
[2021-02-25] MEDS: Docusate Sodium 100 MG Cap PO SCH (20:16)
[2021-02-25] MEDS: Donepezil 10 MG Tab PO SCH (20:16)
[2021-02-25] MEDS: atorvaSTATin 20 MG Tab PO SCH (20:17)
[2021-02-25] MEDS: Melatonin 3 MG Tab PO PRN (21:59)
[2021-02-26] MEDS: Ciprofloxacin 0.3% Ophth Soln 5 ML Bottle EYEBOTH SCH ×2 (01:36→05:34)
[2021-02-26] MEDS: Heparin Sodium 5,000 Units/ML Vial SUBCUT SCH (05:33)
[2021-02-26] MEDS: Tamsulosin 0.4 MG Cap.ER PO SCH (08:34)
[2021-02-26] MEDS: Famotidine 20 MG Tab PO SCH (08:34)
[2021-02-26] MEDS: metFORMIN 500 MG Tab PO SCH (08:35)
[2021-02-26] MEDS: Aspirin 81 MG Tab.Chew PO SCH (08:35)
[2021-02-26] MEDS: Insulin Lispro 100 Units/ML 3 ML Vial SUBCUT SCH (08:37)
[2021-02-26] MEDS: Brimonidine 0.15% Ophth Soln 5 ML Bottle EYEBOTH SCH (08:39)
[2021-02-26] MEDS: Insulin Glarg,Human.Rec.Analog 100 Unit/ML SUBCUT SCH (08:39)
[2021-02-26 09:34] VITALS: BP 144/109; PULSE 80
== END 2021-02-26 09:05 | DRG 871 ==
LOC: DL.ED 17:09 → DL.MS 19:05 → UNDOADMIN 19:05 → DL.ED 19:11 → DL.MS 02-01 02:09 → UNDOADMIN 02-02 14:06 → DL.MS 02-02 15:38
PROVIDERS: ADMIT Internal Medicine; ATTEND Internal Medicine
DX: A41.51 Sepsis due to Escherichia coli [E. coli] (principal); U07.1 COVID-19; I50.20 Unspecified systolic (congestive) heart failure; E87.2 Acidosis; I95.9 Hypotension, unspecified; I25.10 Atherosclerotic heart disease of native coronary artery without angina pectoris; E78.5 Hyperlipidemia, unspecified; Z66 Do not resuscitate; E11.65 Type 2 diabetes mellitus with hyperglycemia; A41.9 Sepsis, unspecified organism; F03.90 Unspecified dementia, unspecified severity, without behavioral disturbance, psychotic disturbance, mood disturbance, and anxiety; N40.1 Benign prostatic hyperplasia with lower urinary tract symptoms; R35.0 Frequency of micturition; H54.40 Blindness, one eye, unspecified eye; E11.649 Type 2 diabetes mellitus with hypoglycemia without coma; H10.9 Unspecified conjunctivitis; E83.42 Hypomagnesemia; N39.0 Urinary tract infection, site not specified; I11.0 Hypertensive heart disease with heart failure; H54.7 Unspecified visual loss; K59.09 Other constipation; H91.90 Unspecified hearing loss, unspecified ear; E78.00 Pure hypercholesterolemia, unspecified; I25.2 Old myocardial infarction; I10 Essential (primary) hypertension; K59.00 Constipation, unspecified; M19.90 Unspecified osteoarthritis, unspecified site; Z89.512 Acquired absence of left leg below knee; Z89.511 Acquired absence of right leg below knee; E11.9 Type 2 diabetes mellitus without complications; Z85.46 Personal history of malignant neoplasm of prostate; Z95.5 Presence of coronary angioplasty implant and graft; Z95.1 Presence of aortocoronary bypass graft; Z91.040 Latex allergy status; Z79.82 Long term (current) use of aspirin; Z79.4 Long term (current) use of insulin; Z79.899 Other long term (current) drug therapy; Z20.822 Contact with and (suspected) exposure to COVID-19
CPT/HCPCS: 0240U; 36415; 71045; 74018; 74176; 80048; 80053; 81001; 81003; 82947; 83036; 83605; 83735; 85025; 85027; 87040; 87086; 87088; 87186; 96374; 99284; 99285; 99231; 99232; 99233; 99239; A9270-GY; J0696; J0744; J1644; J1815-GY; J3475; J7030; U0002

== ENCOUNTER 2021-03-15 01:18 | Emergency (ER) | payer MEDICARE, OTHER ==
[2021-03-15 01:26] VITALS: BP 94/70; PULSE 88
[2021-03-15 02:18] LABS: ANION GAP 12.9 mEq/L (7-13); CHLORIDE,CL 110 mmol/L (98-107); SODIUM,NA 145 mmol/L (136-145)
[2021-03-15] MEDS ORDERED: Nitrofurantoin Monohydrate/Macrocrystalline 100 MG Cap PO ONE (03:17)
== END 2021-03-15 03:45 | disposition home or self-care (01) ==
LOC: DL.ED 01:18
DX: N39.0 Urinary tract infection, site not specified (principal); R31.9 Hematuria, unspecified; E78.00 Pure hypercholesterolemia, unspecified; I10 Essential (primary) hypertension; I25.2 Old myocardial infarction; E11.9 Type 2 diabetes mellitus without complications; Z95.5 Presence of coronary angioplasty implant and graft; Z91.040 Latex allergy status; Z79.82 Long term (current) use of aspirin; Z79.4 Long term (current) use of insulin; Z79.899 Other long term (current) drug therapy
CPT/HCPCS: 36415; 80053; 81001; 82947; 83605; 85025; 87040; 87086; 99283; A9270

== ENCOUNTER 2021-03-24 06:58 | Emergency (ER) | payer MEDICARE, OTHER ==
[2021-03-24 07:18] VITALS: BP 99/59; PULSE 83
== END 2021-03-24 08:26 | disposition home or self-care (01) ==
LOC: DL.ED 06:58
DX: S40.211A Abrasion of right shoulder, initial encounter (principal); R07.81 Pleurodynia; M25.551 Pain in right hip; M54.6 Pain in thoracic spine; E78.00 Pure hypercholesterolemia, unspecified; I10 Essential (primary) hypertension; I25.2 Old myocardial infarction; E11.9 Type 2 diabetes mellitus without complications; Z91.040 Latex allergy status; Z79.4 Long term (current) use of insulin; Z79.82 Long term (current) use of aspirin; Z79.899 Other long term (current) drug therapy; Z95.1 Presence of aortocoronary bypass graft; W05.0XXA Fall from non-moving wheelchair, initial encounter
CPT/HCPCS: 71250; 72128; 72192; 99283; 99283-25

== ENCOUNTER 2024-11-01 14:17 | Inpatient (IN) | payer MEDICARE, OTHER ==
[2024-11-01] MEDS ORDERED: Ondansetron 4 MG Tab.DIS PO PRN (16:22)
[2024-11-01] MEDS ORDERED: Benzocaine/Cetylpyridinium/Menthol Lozenge MUCMEM PRN (16:30)
[2024-11-01] MEDS ORDERED: 50% Dextrose in Water 50 ML Syringe IVPUSH PRN (16:36)
[2024-11-01 17:42] LABS: BASOPHILS PERCENT AUTO 0.5 % (0.0-1.0); EOSINOPHILS PERCENT AUTO 3.8 % (1.0-3.0); LYMPHOCYTES PERCENT AUTO 24.5 % (20.5-50.1); MONOCYTES PERCENT AUTO 5.7 % (2-8); NEUTROPHILS PERCENT AUTO 65.5 % (42.2-75.2); PLATELET COUNT,PLT 254 10^3/uL (150-450); RED BLOOD CELL COUNT 4.04 10^6/uL (4.6-6.2); WHITE BLOOD CELL COUNT,WBC 7.7 10^3/uL (5.0-10.0)
[2024-11-01 18:01] LABS: INR 0.9 (0.9-1.2); PTT,PARTIAL THROMBOPLSTIN TIME 26.3 SEC (22.0-34.0)
[2024-11-01 18:03] LABS: ALANINE AMINOTRANSFERASE,ALT 19 U/L (16-63); ASPARTATE AMNIOTRANSFERASE,AST 14 U/L (15-37); BILIRUBIN TOTAL 0.2 mg/dL (0.2-1.0); BLOOD UREA NITROGEN,BUN 23 mg/dL (7-18); CARBON DIOXIDE,CO2 25 mmol/L (21-32); CHLORIDE,CL 112 mmol/L (98-107); CREATININE 0.76 mg/dL (0.70-1.30); EST CRCL DRUG DOSING (CG) 60.63 mL/min; GLUCOSE RANDOM 99 mg/dL (70-99); POTASSIUM,K 4.7 mmol/L (3.5-5.1); PROTEIN TOTAL,TP 7.2 g/dL (6.4-8.2); SODIUM,NA 144 mmol/L (136-145)
[2024-11-01 18:04] LABS: A/G RATIO 0.76; ESTIMATED GFR 86 mL/min (>=60)
[2024-11-01 18:28] LABS: IRON,FE 22.0 ug/dL (65-175); PERCENT FE SATURATION 7.2 % (20.0-50.0)
[2024-11-01 18:39] LABS: FOLIC ACID 9.5 ng/mL (8.6-58.9)
[2024-11-01] MEDS: Sennosides/Docusate Sodium 50-8.6 MG Tab PO SCH (20:20)
[2024-11-02 07:48] LABS: BASOPHILS PERCENT AUTO 0.5 % (0.0-1.0); EOSINOPHILS PERCENT AUTO 6.1 % (1.0-3.0); LYMPHOCYTES PERCENT AUTO 23.9 % (20.5-50.1); MONOCYTES PERCENT AUTO 6.6 % (2-8); NEUTROPHILS PERCENT AUTO 62.9 % (42.2-75.2); PLATELET COUNT,PLT 236 10^3/uL (150-450); RED BLOOD CELL COUNT 3.91 10^6/uL (4.6-6.2); WHITE BLOOD CELL COUNT,WBC 8.2 10^3/uL (5.0-10.0)
[2024-11-02 08:02] LABS: BLOOD UREA NITROGEN,BUN 17.0 mg/dL (7-18); CARBON DIOXIDE,CO2 27.0 mmol/L (21-32); CHLORIDE,CL 107.0 mmol/L (98-107); CREATININE 0.66 mg/dL (0.70-1.30); EST CRCL DRUG DOSING (CG) 69.81 mL/min; GLUCOSE RANDOM 114.0 mg/dL (70-99); POTASSIUM,K 4.5 mmol/L (3.5-5.1); SODIUM,NA 142.0 mmol/L (136-145)
[2024-11-02 08:03] LABS: ESTIMATED GFR 90.0 mL/min (>=60)
[2024-11-02 08:35] LABS: SEDIMENTATION RATE MANUAL 14 mm/hr (0-15)
[2024-11-02] MEDS: Ergocalciferol (Vitamin D2) 1.25 MG Cap PO SCH (09:33)
[2024-11-02] MEDS: Polyvinyl Alcohol 1.4% Ophth Soln 15 ML Bottle EYEBOTH SCH (09:37)
[2024-11-02 22:48] LABS: APPEARANCE,URINE CLEAR (CLEAR); GLUCOSE,URINE NEGATIVE (NEGATIVE); OCCULT BLOOD,URINE NEGATIVE (NEGATIVE)
[2024-11-02 23:00] LABS: EPITHELIAL CELLS,URINE MODERATE /HPF (NOT SEEN)
[2024-11-03 06:49] LABS: BASOPHILS PERCENT AUTO 0.6 % (0.0-1.0); EOSINOPHILS PERCENT AUTO 4.8 % (1.0-3.0); LYMPHOCYTES PERCENT AUTO 29.7 % (20.5-50.1); MONOCYTES PERCENT AUTO 7.4 % (2-8); NEUTROPHILS PERCENT AUTO 57.5 % (42.2-75.2); PLATELET COUNT,PLT 224 10^3/uL (150-450); RED BLOOD CELL COUNT 3.84 10^6/uL (4.6-6.2); WHITE BLOOD CELL COUNT,WBC 7.9 10^3/uL (5.0-10.0)
[2024-11-03 07:12] LABS: BLOOD UREA NITROGEN,BUN 20.0 mg/dL (7-18); CARBON DIOXIDE,CO2 29.0 mmol/L (21-32); CHLORIDE,CL 106.0 mmol/L (98-107); CREATININE 0.76 mg/dL (0.70-1.30); EST CRCL DRUG DOSING (CG) 60.63 mL/min; GLUCOSE RANDOM 97.0 mg/dL (70-99); POTASSIUM,K 4.7 mmol/L (3.5-5.1); SODIUM,NA 141.0 mmol/L (136-145)
[2024-11-03 07:17] LABS: ESTIMATED GFR 86.0 mL/min (>=60)
[2024-11-04] MEDS: Sodium Chloride 0.9% 10 ML Syringe FLUSH PRN (02:19)
[2024-11-04 06:45] LABS: BASOPHILS PERCENT AUTO 0.5 % (0.0-1.0); EOSINOPHILS PERCENT AUTO 3.5 % (1.0-3.0); LYMPHOCYTES PERCENT AUTO 31.3 % (20.5-50.1); MONOCYTES PERCENT AUTO 10.2 % (2-8); NEUTROPHILS PERCENT AUTO 54.5 % (42.2-75.2); PLATELET COUNT,PLT 226 10^3/uL (150-450); RED BLOOD CELL COUNT 3.86 10^6/uL (4.6-6.2); WHITE BLOOD CELL COUNT,WBC 7.6 10^3/uL (5.0-10.0)
[2024-11-04 07:17] LABS: ALANINE AMINOTRANSFERASE,ALT 8.0 U/L (16-63); ASPARTATE AMNIOTRANSFERASE,AST 17.0 U/L (15-37); BILIRUBIN TOTAL 0.2 mg/dL (0.2-1.0); BLOOD UREA NITROGEN,BUN 26.0 mg/dL (7-18); CARBON DIOXIDE,CO2 28.0 mmol/L (21-32); CHLORIDE,CL 106.0 mmol/L (98-107); CREATININE 0.85 mg/dL (0.70-1.30); EST CRCL DRUG DOSING (CG) 54.21 mL/min; GLUCOSE RANDOM 111.0 mg/dL (70-99); POTASSIUM,K 4.5 mmol/L (3.5-5.1); PROTEIN TOTAL,TP 6.7 g/dL (6.4-8.2); SODIUM,NA 142.0 mmol/L (136-145)
[2024-11-04 07:21] LABS: A/G RATIO 0.76; ESTIMATED GFR 84.0 mL/min (>=60)
[2024-11-04] MEDS: Ergocalciferol (Vitamin D2) 1.25 MG Cap PO SCH (13:08)
[2024-11-04] MEDS: Menthol 85 GM Jar TOP PRN (19:39)
[2024-11-07 09:13] LABS: BASOPHILS PERCENT AUTO 0.3 % (0.0-1.0); EOSINOPHILS PERCENT AUTO 4.2 % (1.0-3.0); LYMPHOCYTES PERCENT AUTO 26.9 % (20.5-50.1); MONOCYTES PERCENT AUTO 7.8 % (2-8); NEUTROPHILS PERCENT AUTO 60.8 % (42.2-75.2); PLATELET COUNT,PLT 236 10^3/uL (150-450); RED BLOOD CELL COUNT 3.90 10^6/uL (4.6-6.2); WHITE BLOOD CELL COUNT,WBC 7.8 10^3/uL (5.0-10.0)
[2024-11-07 09:26] LABS: BLOOD UREA NITROGEN,BUN 25.0 mg/dL (7-18); CARBON DIOXIDE,CO2 31.0 mmol/L (21-32); CREATININE 0.89 mg/dL (0.70-1.30); EST CRCL DRUG DOSING (CG) 51.77 mL/min; GLUCOSE RANDOM 113.0 mg/dL (70-99)
[2024-11-07 09:42] LABS: CHLORIDE,CL 105.0 mmol/L (98-107); ESTIMATED GFR 82.0 mL/min (>=60); POTASSIUM,K 4.3 mmol/L (3.5-5.1); SODIUM,NA 143.0 mmol/L (136-145)
[2024-11-08 06:47] LABS: BASOPHILS PERCENT AUTO 0.4 % (0.0-1.0); EOSINOPHILS PERCENT AUTO 4.2 % (1.0-3.0); LYMPHOCYTES PERCENT AUTO 25.1 % (20.5-50.1); MONOCYTES PERCENT AUTO 8.2 % (2-8); NEUTROPHILS PERCENT AUTO 62.1 % (42.2-75.2); PLATELET COUNT,PLT 231 10^3/uL (150-450); RED BLOOD CELL COUNT 3.91 10^6/uL (4.6-6.2); WHITE BLOOD CELL COUNT,WBC 8.3 10^3/uL (5.0-10.0)
[2024-11-08 07:08] LABS: ALANINE AMINOTRANSFERASE,ALT 7 U/L (16-63); ASPARTATE AMNIOTRANSFERASE,AST 15 U/L (15-37); BILIRUBIN TOTAL 0.3 mg/dL (0.2-1.0); BLOOD UREA NITROGEN,BUN 26 mg/dL (7-18); CARBON DIOXIDE,CO2 31 mmol/L (21-32); CHLORIDE,CL 106 mmol/L (98-107); CREATINE KINASE,CK 94 U/L (39-308); CREATININE 0.84 mg/dL (0.70-1.30); EST CRCL DRUG DOSING (CG) 54.85 mL/min; GLUCOSE RANDOM 90 mg/dL (70-99); POTASSIUM,K 4.2 mmol/L (3.5-5.1); PROTEIN TOTAL,TP 6.7 g/dL (6.4-8.2); SODIUM,NA 144 mmol/L (136-145)
[2024-11-08 07:09] LABS: A/G RATIO 0.81; ESTIMATED GFR 84 mL/min (>=60)
[2024-11-08 07:34] LABS: SEDIMENTATION RATE MANUAL 13 mm/hr (0-15)
[2024-11-15 06:43] LABS: BASOPHILS PERCENT AUTO 0.4 % (0.0-1.0); EOSINOPHILS PERCENT AUTO 4.4 % (1.0-3.0); LYMPHOCYTES PERCENT AUTO 30.8 % (20.5-50.1); MONOCYTES PERCENT AUTO 8.0 % (2-8); NEUTROPHILS PERCENT AUTO 56.4 % (42.2-75.2); PLATELET COUNT,PLT 218 10^3/uL (150-450); RED BLOOD CELL COUNT 4.25 10^6/uL (4.6-6.2); WHITE BLOOD CELL COUNT,WBC 7.3 10^3/uL (5.0-10.0)
[2024-11-15 07:22] LABS: ALANINE AMINOTRANSFERASE,ALT 6 U/L (16-63); ASPARTATE AMNIOTRANSFERASE,AST 16 U/L (15-37); BILIRUBIN TOTAL 0.3 mg/dL (0.2-1.0); BLOOD UREA NITROGEN,BUN 20 mg/dL (7-18); CARBON DIOXIDE,CO2 31 mmol/L (21-32); CHLORIDE,CL 104 mmol/L (98-107); CREATININE 1.06 mg/dL (0.70-1.30); EST CRCL DRUG DOSING (CG) 43.47 mL/min; GLUCOSE RANDOM 89 mg/dL (70-99); POTASSIUM,K 4.4 mmol/L (3.5-5.1); PROTEIN TOTAL,TP 6.6 g/dL (6.4-8.2); SODIUM,NA 143 mmol/L (136-145)
[2024-11-15 07:36] LABS: A/G RATIO 0.78; ESTIMATED GFR 68 mL/min (>=60)
[2024-11-15 07:46] LABS: SEDIMENTATION RATE MANUAL 7 mm/hr (0-15)
[2024-11-18 10:15] LABS: BASOPHILS PERCENT AUTO 0.7 % (0.0-1.0); EOSINOPHILS PERCENT AUTO 3.9 % (1.0-3.0); LYMPHOCYTES PERCENT AUTO 29.9 % (20.5-50.1); MONOCYTES PERCENT AUTO 8.0 % (2-8); NEUTROPHILS PERCENT AUTO 57.5 % (42.2-75.2); PLATELET COUNT,PLT 239 10^3/uL (150-450); RED BLOOD CELL COUNT 4.33 10^6/uL (4.6-6.2); WHITE BLOOD CELL COUNT,WBC 7.7 10^3/uL (5.0-10.0)
[2024-11-18 10:25] LABS: BLOOD UREA NITROGEN,BUN 15.0 mg/dL (7-18); CARBON DIOXIDE,CO2 30.0 mmol/L (21-32); CHLORIDE,CL 102.0 mmol/L (98-107); CREATININE 0.92 mg/dL (0.70-1.30); EST CRCL DRUG DOSING (CG) 50.08 mL/min; GLUCOSE RANDOM 175.0 mg/dL (70-99); POTASSIUM,K 4.3 mmol/L (3.5-5.1); SODIUM,NA 136.0 mmol/L (136-145)
[2024-11-18 10:29] LABS: ESTIMATED GFR 80.0 mL/min (>=60)
[2024-11-21 06:52] LABS: BASOPHILS PERCENT AUTO 0.6 % (0.0-1.0); EOSINOPHILS PERCENT AUTO 4.3 % (1.0-3.0); LYMPHOCYTES PERCENT AUTO 28.2 % (20.5-50.1); MONOCYTES PERCENT AUTO 6.9 % (2-8); NEUTROPHILS PERCENT AUTO 60.0 % (42.2-75.2); PLATELET COUNT,PLT 241 10^3/uL (150-450); RED BLOOD CELL COUNT 4.06 10^6/uL (4.6-6.2); WHITE BLOOD CELL COUNT,WBC 6.8 10^3/uL (5.0-10.0)
[2024-11-21 07:13] LABS: ALANINE AMINOTRANSFERASE,ALT 8 U/L (16-63); ASPARTATE AMNIOTRANSFERASE,AST 16 U/L (15-37); BILIRUBIN TOTAL 0.2 mg/dL (0.2-1.0); BLOOD UREA NITROGEN,BUN 17 mg/dL (7-18); CARBON DIOXIDE,CO2 30 mmol/L (21-32); CHLORIDE,CL 103 mmol/L (98-107); CREATININE 0.87 mg/dL (0.70-1.30); EST CRCL DRUG DOSING (CG) 52.96 mL/min; GLUCOSE RANDOM 180 mg/dL (70-99); POTASSIUM,K 4.3 mmol/L (3.5-5.1); PROTEIN TOTAL,TP 6.3 g/dL (6.4-8.2); SODIUM,NA 139 mmol/L (136-145)
[2024-11-21 07:14] LABS: A/G RATIO 0.80; ESTIMATED GFR 83 mL/min (>=60)
[2024-11-21 07:51] LABS: SEDIMENTATION RATE MANUAL 6 mm/hr (0-15)
[2024-11-24] MEDS: Insulin Glarg,Human.Rec.Analog 100 Unit/ML 10 ML Vial SUBCUT SCH (20:53)
[2024-11-25 06:40] LABS: BASOPHILS PERCENT AUTO 0.4 % (0.0-1.0); EOSINOPHILS PERCENT AUTO 3.7 % (1.0-3.0); LYMPHOCYTES PERCENT AUTO 29.5 % (20.5-50.1); MONOCYTES PERCENT AUTO 6.0 % (2-8); NEUTROPHILS PERCENT AUTO 60.4 % (42.2-75.2); PLATELET COUNT,PLT 219 10^3/uL (150-450); RED BLOOD CELL COUNT 3.91 10^6/uL (4.6-6.2); WHITE BLOOD CELL COUNT,WBC 7.6 10^3/uL (5.0-10.0)
[2024-11-25 06:53] LABS: ALANINE AMINOTRANSFERASE,ALT 7 U/L (16-63); ASPARTATE AMNIOTRANSFERASE,AST 12 U/L (15-37); BILIRUBIN TOTAL 0.2 mg/dL (0.2-1.0); BLOOD UREA NITROGEN,BUN 16 mg/dL (7-18); CARBON DIOXIDE,CO2 30 mmol/L (21-32); CHLORIDE,CL 105 mmol/L (98-107); CREATININE 0.80 mg/dL (0.70-1.30); EST CRCL DRUG DOSING (CG) 57.60 mL/min; GLUCOSE RANDOM 148 mg/dL (70-99); POTASSIUM,K 4.6 mmol/L (3.5-5.1); PROTEIN TOTAL,TP 6.2 g/dL (6.4-8.2); SODIUM,NA 141 mmol/L (136-145)
[2024-11-25 06:54] LABS: A/G RATIO 0.77; ESTIMATED GFR 85 mL/min (>=60)
[2024-11-25 07:21] LABS: SEDIMENTATION RATE MANUAL 2 mm/hr (0-15)
[2024-11-28 06:06] LABS: BASOPHILS PERCENT AUTO 0.4 % (0.0-1.0); EOSINOPHILS PERCENT AUTO 3.5 % (1.0-3.0); LYMPHOCYTES PERCENT AUTO 23.3 % (20.5-50.1); MONOCYTES PERCENT AUTO 5.8 % (2-8); NEUTROPHILS PERCENT AUTO 67.0 % (42.2-75.2); PLATELET COUNT,PLT 195 10^3/uL (150-450); RED BLOOD CELL COUNT 3.93 10^6/uL (4.6-6.2); WHITE BLOOD CELL COUNT,WBC 8.4 10^3/uL (5.0-10.0)
[2024-11-28 06:27] LABS: A/G RATIO 0.81; ALANINE AMINOTRANSFERASE,ALT 8 U/L (16-63); ASPARTATE AMNIOTRANSFERASE,AST 14 U/L (15-37); BILIRUBIN TOTAL 0.3 mg/dL (0.2-1.0); BLOOD UREA NITROGEN,BUN 20 mg/dL (7-18); CARBON DIOXIDE,CO2 33 mmol/L (21-32); CHLORIDE,CL 104 mmol/L (98-107); CREATININE 0.93 mg/dL (0.70-1.30); EST CRCL DRUG DOSING (CG) 49.55 mL/min; ESTIMATED GFR 79 mL/min (>=60); GLUCOSE RANDOM 136 mg/dL (70-99); PROTEIN TOTAL,TP 6.7 g/dL (6.4-8.2); SODIUM,NA 144 mmol/L (136-145)
[2024-11-28 06:29] LABS: POTASSIUM,K 5.2 mmol/L (3.5-5.1)
[2024-11-28 06:47] LABS: SEDIMENTATION RATE MANUAL 14 mm/hr (0-15)
[2024-11-28] MEDS: Furosemide 40 MG/4 ML VIAL IVPUSH ONE (11:41)
[2024-11-29] MEDS: Albuterol 0.083% 2.5 MG/3 ML Neb Soln NEB STA (08:21)
[2024-11-30 06:34] LABS: BLOOD UREA NITROGEN,BUN 29.0 mg/dL (7-18); CARBON DIOXIDE,CO2 32.0 mmol/L (21-32); CHLORIDE,CL 102.0 mmol/L (98-107); CREATININE 1.24 mg/dL (0.70-1.30); EST CRCL DRUG DOSING (CG) 37.16 mL/min; GLUCOSE RANDOM 142.0 mg/dL (70-99); POTASSIUM,K 4.8 mmol/L (3.5-5.1); SODIUM,NA 143.0 mmol/L (136-145)
[2024-11-30 06:56] LABS: ESTIMATED GFR 56.0 mL/min (>=60)
[2024-11-30 09:16] LABS: APPEARANCE,URINE CLEAR (CLEAR); GLUCOSE,URINE NEGATIVE (NEGATIVE); OCCULT BLOOD,URINE TRACE-INTACT (NEGATIVE)
[2024-11-30 09:59] LABS: EPITHELIAL CELLS,URINE FEW /HPF (NOT SEEN)
[2024-11-30 10:00] LABS: YEAST,URINE FEW /HPF (NOT SEEN)
[2024-12-01 06:36] LABS: BLOOD UREA NITROGEN,BUN 26.0 mg/dL (7-18); CARBON DIOXIDE,CO2 33.0 mmol/L (21-32); CHLORIDE,CL 102.0 mmol/L (98-107); CREATININE 0.89 mg/dL (0.70-1.30); EST CRCL DRUG DOSING (CG) 51.77 mL/min; GLUCOSE RANDOM 126.0 mg/dL (70-99); POTASSIUM,K 4.7 mmol/L (3.5-5.1); SODIUM,NA 140.0 mmol/L (136-145)
[2024-12-01 06:43] LABS: ESTIMATED GFR 82.0 mL/min (>=60)
[2024-12-02 06:48] LABS: BASOPHILS PERCENT AUTO 0.5 % (0.0-1.0); EOSINOPHILS PERCENT AUTO 5.1 % (1.0-3.0); LYMPHOCYTES PERCENT AUTO 26.0 % (20.5-50.1); MONOCYTES PERCENT AUTO 6.7 % (2-8); NEUTROPHILS PERCENT AUTO 61.7 % (42.2-75.2); PLATELET COUNT,PLT 195 10^3/uL (150-450); RED BLOOD CELL COUNT 4.00 10^6/uL (4.6-6.2); WHITE BLOOD CELL COUNT,WBC 6.6 10^3/uL (5.0-10.0)
[2024-12-02 07:03] LABS: ASPARTATE AMNIOTRANSFERASE,AST 13 U/L (15-37); BILIRUBIN TOTAL 0.3 mg/dL (0.2-1.0); BLOOD UREA NITROGEN,BUN 20 mg/dL (7-18); CARBON DIOXIDE,CO2 33 mmol/L (21-32); CHLORIDE,CL 103 mmol/L (98-107); CREATININE 0.80 mg/dL (0.70-1.30); EST CRCL DRUG DOSING (CG) 57.60 mL/min; GLUCOSE RANDOM 132 mg/dL (70-99); POTASSIUM,K 4.7 mmol/L (3.5-5.1); PROTEIN TOTAL,TP 6.3 g/dL (6.4-8.2); SODIUM,NA 141 mmol/L (136-145)
[2024-12-02 07:07] LABS: A/G RATIO 0.80; ALANINE AMINOTRANSFERASE,ALT < 6 U/L (16-63); ESTIMATED GFR 85 mL/min (>=60)
[2024-12-03] MEDS: Saccharomyces Boulardii (Probiotic) 250 MG Cap PO SCH (20:55)
[2024-12-03] MEDS ORDERED: Insulin Glarg,Human.Rec.Analog 100 Unit/ML 10 ML Vial SUBCUT SCH (21:00)
[2024-12-04 06:36] LABS: BASOPHILS PERCENT AUTO 0.6 % (0.0-1.0); EOSINOPHILS PERCENT AUTO 3.9 % (1.0-3.0); LYMPHOCYTES PERCENT AUTO 27.8 % (20.5-50.1); MONOCYTES PERCENT AUTO 6.0 % (2-8); NEUTROPHILS PERCENT AUTO 61.7 % (42.2-75.2); PLATELET COUNT,PLT 214 10^3/uL (150-450); RED BLOOD CELL COUNT 4.13 10^6/uL (4.6-6.2); WHITE BLOOD CELL COUNT,WBC 6.4 10^3/uL (5.0-10.0)
[2024-12-04 07:04] LABS: ASPARTATE AMNIOTRANSFERASE,AST 11 U/L (15-37); BILIRUBIN TOTAL 0.2 mg/dL (0.2-1.0); BLOOD UREA NITROGEN,BUN 19 mg/dL (7-18); CARBON DIOXIDE,CO2 30 mmol/L (21-32); CHLORIDE,CL 103 mmol/L (98-107); CREATININE 0.95 mg/dL (0.70-1.30); EST CRCL DRUG DOSING (CG) 48.50 mL/min; GLUCOSE RANDOM 261 mg/dL (70-99); POTASSIUM,K 4.5 mmol/L (3.5-5.1); PROTEIN TOTAL,TP 6.4 g/dL (6.4-8.2); SODIUM,NA 141 mmol/L (136-145)
[2024-12-04 07:12] LABS: ALANINE AMINOTRANSFERASE,ALT 6 U/L (16-63)
[2024-12-04 07:14] LABS: A/G RATIO 0.88; ESTIMATED GFR 77 mL/min (>=60)
[2024-12-04 07:18] LABS: SEDIMENTATION RATE MANUAL 13 mm/hr (0-15)
[2024-12-06 11:29] LABS: BASOPHILS PERCENT AUTO 0.5 % (0.0-1.0); EOSINOPHILS PERCENT AUTO 2.6 % (1.0-3.0); LYMPHOCYTES PERCENT AUTO 27.6 % (20.5-50.1); MONOCYTES PERCENT AUTO 7.9 % (2-8); NEUTROPHILS PERCENT AUTO 61.4 % (42.2-75.2); PLATELET COUNT,PLT 226 10^3/uL (150-450); RED BLOOD CELL COUNT 3.61 10^6/uL (4.6-6.2); WHITE BLOOD CELL COUNT,WBC 5.8 10^3/uL (5.0-10.0)
[2024-12-06 11:51] LABS: A/G RATIO 0.88; ALANINE AMINOTRANSFERASE,ALT 7 U/L (16-63); ASPARTATE AMNIOTRANSFERASE,AST 16 U/L (15-37); BILIRUBIN TOTAL 0.2 mg/dL (0.2-1.0); BLOOD UREA NITROGEN,BUN 13 mg/dL (7-18); CARBON DIOXIDE,CO2 28 mmol/L (21-32); CHLORIDE,CL 104 mmol/L (98-107); CREATINE KINASE,CK 121 U/L (39-308); CREATININE 1.06 mg/dL (0.70-1.30); EST CRCL DRUG DOSING (CG) 43.47 mL/min; ESTIMATED GFR 68 mL/min (>=60); GLUCOSE RANDOM 190 mg/dL (70-99); POTASSIUM,K 5.0 mmol/L (3.5-5.1); PROTEIN TOTAL,TP 6.2 g/dL (6.4-8.2); SODIUM,NA 139 mmol/L (136-145)
[2024-12-06 12:07] LABS: SEDIMENTATION RATE MANUAL 10 mm/hr (0-15)
[2024-12-06] MEDS: Meropenem 1 GM SDV IVPUSH SCH (18:14)
[2024-12-07] MEDS: Heparin Sodium 5,000 Units/ML Vial ONE (09:47)
[2024-12-07] MEDS: Heparin Sodium 5,000 Units/ML Vial SUBCUT SCH (09:47)
[2024-12-07 10:20] LABS: T4 FREE 0.99 ng/dL (0.76-1.46); TSH ULTRASENSITIVE 1.97 uIU/mL (0.36-3.74)
[2024-12-07] MEDS ORDERED: Heparin Sodium 5,000 Units/ML Vial SUBCUT SCH (14:00)
[2024-12-08 05:58] LABS: BASOPHILS PERCENT AUTO 0.6 % (0.0-1.0); EOSINOPHILS PERCENT AUTO 4.1 % (1.0-3.0); LYMPHOCYTES PERCENT AUTO 32.5 % (20.5-50.1); MONOCYTES PERCENT AUTO 8.2 % (2-8); NEUTROPHILS PERCENT AUTO 54.6 % (42.2-75.2); PLATELET COUNT,PLT 244 10^3/uL (150-450); RED BLOOD CELL COUNT 4.17 10^6/uL (4.6-6.2); WHITE BLOOD CELL COUNT,WBC 6.3 10^3/uL (5.0-10.0)
[2024-12-10] MEDS: Meropenem 1 GM SDV IVPUSH SCH (17:32)
[2024-12-11 06:29] LABS: BASOPHILS PERCENT AUTO 1.2 % (0.0-1.0); EOSINOPHILS PERCENT AUTO 4.1 % (1.0-3.0); LYMPHOCYTES PERCENT AUTO 30.1 % (20.5-50.1); MONOCYTES PERCENT AUTO 7.8 % (2-8); NEUTROPHILS PERCENT AUTO 56.8 % (42.2-75.2); PLATELET COUNT,PLT 231 10^3/uL (150-450); RED BLOOD CELL COUNT 4.31 10^6/uL (4.6-6.2); WHITE BLOOD CELL COUNT,WBC 5.8 10^3/uL (5.0-10.0)
[2024-12-11 06:49] LABS: ALANINE AMINOTRANSFERASE,ALT 8 U/L (16-63); ASPARTATE AMNIOTRANSFERASE,AST 16 U/L (15-37); BILIRUBIN TOTAL 0.5 mg/dL (0.2-1.0); BLOOD UREA NITROGEN,BUN 22 mg/dL (7-18); CARBON DIOXIDE,CO2 27 mmol/L (21-32); CHLORIDE,CL 103 mmol/L (98-107); CREATININE 1.10 mg/dL (0.70-1.30); EST CRCL DRUG DOSING (CG) 41.89 mL/min; GLUCOSE RANDOM 157 mg/dL (70-99); POTASSIUM,K 4.7 mmol/L (3.5-5.1); PROTEIN TOTAL,TP 6.5 g/dL (6.4-8.2); SODIUM,NA 140 mmol/L (136-145)
[2024-12-11 06:51] LABS: A/G RATIO 1.03; ESTIMATED GFR 65 mL/min (>=60)
[2024-12-11 07:09] LABS: SEDIMENTATION RATE MANUAL 3 mm/hr (0-15)
[2024-12-13 09:47] VITALS: BP 124/85; PULSE 81
[2024-12-13] MEDS: FLU (Fluad Triv) 25-26 (65UP)/MF59C/PF 45 MCG/0.5 ML Syringe IM ONE (10:26)
== END 2024-12-13 10:25 | disposition home health service (06) | DRG 539 ==
LOC: DL.MS 15:10 → UNDOADMIN 15:10 → DL.MS 16:22
PROVIDERS: ADMIT Student in an Organized Health Care Education/Training Program; ATTEND Internal Medicine
DX: M86.662 Other chronic osteomyelitis, left tibia and fibula (principal); G92.8 Other toxic encephalopathy; I13.0 Hypertensive heart and chronic kidney disease with heart failure and stage 1 through stage 4 chronic kidney disease, or unspecified chronic kidney disease; N39.0 Urinary tract infection, site not specified; Z16.39 Resistance to other specified antimicrobial drug; H91.90 Unspecified hearing loss, unspecified ear; H54.7 Unspecified visual loss; H40.9 Unspecified glaucoma; I25.10 Atherosclerotic heart disease of native coronary artery without angina pectoris; E78.00 Pure hypercholesterolemia, unspecified; I50.9 Heart failure, unspecified; E11.51 Type 2 diabetes mellitus with diabetic peripheral angiopathy without gangrene; K59.09 Other constipation; N40.0 Benign prostatic hyperplasia without lower urinary tract symptoms; M19.90 Unspecified osteoarthritis, unspecified site; N18.9 Chronic kidney disease, unspecified; E11.22 Type 2 diabetes mellitus with diabetic chronic kidney disease; D63.1 Anemia in chronic kidney disease; F03.90 Unspecified dementia, unspecified severity, without behavioral disturbance, psychotic disturbance, mood disturbance, and anxiety; B96.89 Other specified bacterial agents as the cause of diseases classified elsewhere; E83.42 Hypomagnesemia; E88.09 Other disorders of plasma-protein metabolism, not elsewhere classified; Z85.46 Personal history of malignant neoplasm of prostate; Z91.040 Latex allergy status; Z79.82 Long term (current) use of aspirin; Z79.1 Long term (current) use of non-steroidal anti-inflammatories (NSAID); Z79.899 Other long term (current) drug therapy; Z79.4 Long term (current) use of insulin; Z79.84 Long term (current) use of oral hypoglycemic drugs; I25.2 Old myocardial infarction; Z95.5 Presence of coronary angioplasty implant and graft; Z95.1 Presence of aortocoronary bypass graft; Z86.16 Personal history of COVID-19; Z98.890 Other specified postprocedural states; Z90.79 Acquired absence of other genital organ(s); Z89.512 Acquired absence of left leg below knee; Z89.511 Acquired absence of right leg below knee
CPT/HCPCS: 36415; 70450; 71045; 80048; 80053; 81001; 82140; 82272; 82550; 82607; 82728; 82746; 82947; 83036; 83540; 83550; 83735; 84132; 84145; 84439; 84443; 84484; 85025; 85610; 85651; 85730; 86140; 87070; 87086; 87088; 87186; 87493; 90653; 93005; 97161-GP; 97165-GO; 99211; 99309; 99316; A9270-GY; G0008; J0690; J1644; J1815-GY; J1938; J2185; J3490; J7030; Q0138